=== PATIENT | female | born 1940 | race Caucasian/White ===

== ENCOUNTER 2019-10-08 07:08 | Outpatient (CLI) | payer MEDICARE, SELFPAY | END 2019-10-08 07:09 | disposition home or self-care (01) | LOC: CHSLAB 07:11 | PROVIDERS: PCP Internal Medicine Endocrinology, Diabetes & Metabolism; Visit Provider Internal Medicine Endocrinology, Diabetes & Metabolism | DX: E04.9 Nontoxic goiter, unspecified (principal); E03.9 Hypothyroidism, unspecified | CPT/HCPCS: 36415; 84439; 84443 ==

== ENCOUNTER 2019-11-12 07:27 | Outpatient (CLI) | payer MEDICARE, SELFPAY ==
[2019-11-12 08:47] LABS: Free T4 Free Thyroxine 1.09 ng/dL (0.76-1.46); Thyroid Stimulating Hormone 4.68 uIU/mL (0.36-3.74)
== END 2019-11-12 07:28 | disposition home or self-care (01) ==
LOC: CHSLAB 07:30
PROVIDERS: PCP Internal Medicine; Visit Provider Internal Medicine Endocrinology, Diabetes & Metabolism
DX: E04.9 Nontoxic goiter, unspecified (principal); E03.9 Hypothyroidism, unspecified
CPT/HCPCS: 36415; 84439; 84443

== ENCOUNTER 2019-12-24 07:06 | Outpatient (CLI) | payer MEDICARE, SELFPAY ==
[2019-12-24 08:41] LABS: Free T4 Free Thyroxine 1.42 ng/dL (0.76-1.46); Thyroid Stimulating Hormone 0.48 uIU/mL (0.36-3.74)
== END 2019-12-24 07:07 | disposition home or self-care (01) ==
PROVIDERS: PCP Internal Medicine; Visit Provider Internal Medicine Endocrinology, Diabetes & Metabolism
DX: E04.9 Nontoxic goiter, unspecified (principal); E03.9 Hypothyroidism, unspecified
CPT/HCPCS: 36415; 84439; 84443

== ENCOUNTER 2020-01-29 07:03 | Outpatient (CLI) | payer MEDICARE, SELFPAY ==
[2020-01-29 08:21] LABS: Free T3 1.92 pg/mL (2.18-3.98); Free T4 Free Thyroxine 1.27 ng/dL (0.76-1.46); Thyroid Stimulating Hormone 1.92 uIU/mL (0.36-3.74)
== END 2020-01-29 07:04 ==
PROVIDERS: PCP Internal Medicine Endocrinology, Diabetes & Metabolism; Visit Provider Internal Medicine Endocrinology, Diabetes & Metabolism
DX: E03.9 Hypothyroidism, unspecified (principal); E04.1 Nontoxic single thyroid nodule; E04.9 Nontoxic goiter, unspecified
CPT/HCPCS: 36415; 84439; 84443; 84481

== ENCOUNTER 2020-05-08 07:01 | Outpatient (CLI) | payer MEDICARE, SELFPAY ==
[2020-05-08 07:15] LABS: Add Urine Microscopic? YES; Appearance Urine Cloudy (Clear); Bilirubin Urine Negative (Negative); Blood Urine 1+ (Negative); Color Urine Yellow (Yellow); Glucose Urine UA Negative (Negative); Ketones Urine Negative (Negative); Leukocyte Esterase Ur 3+ LEU/UL (Negative); Nitrate Urine Positive (Negative); Protein Urine Negative (Negative); Specific Grav Ur 1.015 (1.010-1.020); Urobilinogen Urine 0.2 mg/dL (0.2-1.0); pH Urine 6.5 (5.0-8.0)
[2020-05-08 07:33] LABS: Bacteria Urine 4+ /hpf; RBC Urine 0-2 /hpf (0-2); Squamous Epithelial Cell Urine Rare /hpf (Few); WBC Urine >75 /hpf (0-3)
== END 2020-05-08 07:02 | disposition home or self-care (01) ==
LOC: CHSLAB 07:02
PROVIDERS: PCP Internal Medicine; Visit Provider Internal Medicine
DX: N39.0 Urinary tract infection, site not specified (principal)
CPT/HCPCS: 81001; 87077; 87086; 87088; 87186

== ENCOUNTER 2020-06-22 07:11 | Outpatient (CLI) | payer MEDICARE, SELFPAY ==
[2020-06-22 07:29] LABS: Basophils Absolute Auto 0.06 K/mm3 (0.00-0.10); Basophils Percent Auto 0.8 % (0.0-1.0); Eosinophils Absolute Auto 0.42 K/mm3 (0.02-0.50); Eosinophils Percent Auto 5.7 % (1.0-6.0); Hematocrit 46.7 % (35.0-42.0); Hemoglobin 14.8 g/dL (11.7-13.8); Immature Granulocyte Absolute 0.01 K/mm3 (0.00-0.00); Immature Granulocyte Percent A 0.1 % (0.0-0.0); Lymphocytes Absolute Auto 1.44 K/mm3 (1.10-4.50); Lymphocytes Percent Auto 19.6 % (18.0-42.0); Mean Corpuscular HGB Conc 31.7 g/dL (32.0-36.0); Mean Corpuscular Hemoglobin 28.9 pg (27.0-31.0); Mean Corpuscular Volume 91.2 fL (78.0-102.0); Mean Platelet Volume 9.5 fl (9.2-11.8); Monocytes Absolute Auto 0.58 K/mm3 (0.10-0.90); Monocytes Percent Auto 7.9 % (2.0-11.0); Neutrophils Absolute Auto 4.8 K/mm3 (1.7-7.2); Neutrophils Percent Auto 65.9 % (50.0-70.0); Platelet Count Result 344 K/mm3 (150-420); Red Blood Count 5.12 M/mm3 (4.20-5.40); Red Cell Distribution Width 13.6 % (11.6-14.4); White Blood Count 7.3 K/mm3 (4.8-10.8)
[2020-06-22 08:17] LABS: Alanine Aminotransferase 18 U/L (14-59); Albumin Level 1.8 g/dL (3.4-5.0); Alkaline Phosphatase 74 U/L (46-116); Anion Gap 7 mmol/L (8-16); Aspartate Amino Transferase 23 U/L (15-37); Bilirubin,Total 0.4 mg/dL (0.00-1.00); Blood Urea Nitrogen 13 mg/dL (7-18); Calcium 8.9 mg/dL (8.5-10.1); Carbon Dioxide 31 mmol/L (21-32); Chloride 108 mmol/L (98-108); Estimated Glomerular Filt Rate > 60; Glucose 106 mg/dL (70-99); Osmolality Calculated 302 mOsm/kg (285-295); Potassium 4.2 mmol/L (3.5-5.1); Sodium 146 mmol/L (136-145); Total Protein 5.9 g/dL (6.4-8.2)
== END 2020-06-22 07:12 | disposition home or self-care (01) ==
LOC: CHSLAB 07:14
PROVIDERS: PCP Internal Medicine; Visit Provider Internal Medicine
DX: E88.09 Other disorders of plasma-protein metabolism, not elsewhere classified (principal)
CPT/HCPCS: 36415; 80053; 85025

== ENCOUNTER 2020-08-03 07:04 | Outpatient (CLI) | payer MEDICARE, SELFPAY ==
[2020-08-03 08:04] LABS: Free T4 Free Thyroxine 1.12 ng/dL (0.76-1.46); Thyroid Stimulating Hormone 3.19 uIU/mL (0.36-3.74)
== END 2020-08-03 07:05 | disposition home or self-care (01) ==
LOC: CHSLAB 07:07
PROVIDERS: PCP Internal Medicine; Visit Provider Internal Medicine Endocrinology, Diabetes & Metabolism
DX: E03.9 Hypothyroidism, unspecified (principal)
CPT/HCPCS: 36415; 84439; 84443

== ENCOUNTER 2020-11-30 07:14 | Outpatient (CLI) | payer MEDICARE, SELFPAY ==
[2020-11-30 07:33] LABS: Appearance Urine Clear (Clear); Basophils Absolute Auto 0.06 K/mm3 (0.00-0.10); Basophils Percent Auto 0.9 % (0.0-1.0); Bilirubin Urine Negative (Negative); Color Urine Yellow (Yellow); Eosinophils Absolute Auto 0.17 K/mm3 (0.02-0.50); Eosinophils Percent Auto 2.5 % (1.0-6.0); Glucose Urine UA Negative (Negative); Hematocrit 42.5 % (35.0-42.0); Hemoglobin 13.5 g/dL (11.7-13.8); Immature Granulocyte Absolute 0.02 K/mm3 (0.00-0.00); Immature Granulocyte Percent A 0.3 % (0.0-0.0); Ketones Urine Negative (Negative); Leukocyte Esterase Ur Negative LEU/UL (Negative); Lymphocytes Absolute Auto 1.34 K/mm3 (1.10-4.50); Lymphocytes Percent Auto 19.9 % (18.0-42.0); Mean Corpuscular HGB Conc 31.8 g/dL (32.0-36.0); Mean Corpuscular Hemoglobin 28.1 pg (27.0-31.0); Mean Corpuscular Volume 88.4 fL (78.0-102.0); Mean Platelet Volume 9.3 fl (9.2-11.8); Monocytes Percent Auto 8.9 % (2.0-11.0); Neutrophils Absolute Auto 4.5 K/mm3 (1.7-7.2); Neutrophils Percent Auto 67.5 % (50.0-70.0); Nitrate Urine Negative (Negative); Platelet Count Result 361 K/mm3 (150-420); Protein Urine Negative (Negative); Red Blood Count 4.81 M/mm3 (4.20-5.40); Red Cell Distribution Width 14.4 % (11.6-14.4); Urobilinogen Urine 0.2 mg/dL (0.2-1.0); White Blood Count 6.7 K/mm3 (4.8-10.8)
[2020-11-30 07:38] LABS: Add Urine Microscopic? YES; Blood Urine Trace-lysed (Negative); WBC Urine 0-3 /hpf (0-3)
[2020-11-30 07:40] LABS: Bacteria Urine Trace /hpf; Squamous Epithelial Cell Urine Rare /hpf (Few)
[2020-11-30 08:43] LABS: Alanine Aminotransferase 21 U/L (14-59); Albumin Level 2.9 g/dL (3.4-5.0); Alkaline Phosphatase 74 U/L (46-116); Anion Gap 8 mmol/L (8-16); Aspartate Amino Transferase 21 U/L (15-37); Bilirubin,Total 0.5 mg/dL (0.00-1.00); Blood Urea Nitrogen 21 mg/dL (7-18); Calcium 8.7 mg/dL (8.5-10.1); Carbon Dioxide 29 mmol/L (21-32); Chloride 107 mmol/L (98-108); Cholesterol 167 mg/dL (0-200); Estimated Glomerular Filt Rate 53; Glucose 90 mg/dL (70-99); HDL Direct 57 mg/dL (40-60); LDL Cholesterol Calculated 94 mg/dL (<130); Osmolality Calculated 301 mOsm/kg (285-295); Potassium 4.1 mmol/L (3.5-5.1); Sodium 144 mmol/L (136-145); Total Protein 5.6 g/dL (6.4-8.2); Triglycerides 80 mg/dL (0-150)
== END 2020-11-30 07:15 | disposition home or self-care (01) ==
LOC: CHSLAB 07:17
PROVIDERS: PCP Internal Medicine; Visit Provider Internal Medicine
DX: E78.5 Hyperlipidemia, unspecified (principal); I10 Essential (primary) hypertension
CPT/HCPCS: 36415; 80053; 80061; 81001; 85025

== ENCOUNTER 2021-03-24 01:37 | Day surgery (SDC) | payer MEDICARE, SELFPAY ==
[2021-03-15 13:46] VITALS: BMI 16.9
[2021-03-24 06:39] VITALS: BP 121/60; PULSE 18; RESP 18; TEMP 36.7; O2SAT 95
[2021-03-24] MEDS: LACTATED RINGERS 1,000 ML 150 ML IV CONT (06:45)
--- NOTE | 2021-03-24 08:07 | WPDANESEPPF ---
Anes - Initial Pre Proc Eval Procedure: Operation Date: 03/24/21 08:00 Proposed Procedures p Colonoscopy - Mathew Jewell DO Date/Time: 03/24/21 08:07 Surgeon: Mathew Jewell DO Pre Op Diagnosis: extensive diverticulosis/anal rectal thickening Patient Data Age: 80 Gender: F Height: 1.65 m Weight: 50.5 kg Last Vital Signs Temp 98.1 F 03/24/21 06:39 Pulse 18 L 03/24/21 06:39 Resp 18 03/24/21 06:39 BP 121/60 03/24/21 06:39 Pulse Ox 95 03/24/21 06:39 Allergies Allergy/AdvReac Type Severity Reaction Status Date / Time blue dye Allergy Unknown Anaphylaxis Verified 03/24/21 06:37 red dye Allergy Unknown Unknown Verified 03/24/21 06:37 Sulfa (Sulfonamide Allergy Unknown Unknown Verified 03/24/21 06:37 Antibiotics) Home Medications Medication Instructions Recorded Confirmed Type alprazolam 0.5 mg tablet 0.5 mg PO DAILY 06/30/19 03/15/21 History aspirin 81 mg tablet,delayed 81 mg PO DAILY 06/30/19 03/15/21 History release atorvastatin 40 mg tablet 40 mg PO DAILY 06/30/19 03/15/21 History clopidogrel 75 mg tablet 75 mg PO DAILY 06/30/19 03/24/21 History docusate sodium 100 mg capsule 100 mg PO DAILY 06/30/19 03/15/21 History magnesium oxide 400 mg PO WEEKLY 06/30/19 03/15/21 History nitroglycerin 0.4 mg sublingual 0.4 mg SUBLINGUAL Q5M PRN 06/30/19 03/15/21 History tablet pantoprazole 40 mg tablet,delayed 40 mg PO QAM 06/30/19 03/15/21 History release pirbuterol 200 mcg/actuation 200 mcg INHALATION PRN PRN 06/30/19 03/15/21 History aerosol inhaler psyllium husk 0.52 gram capsule 0.52 gm PO DAILY 06/30/19 03/15/21 History sennosides 15 mg tablet 15 mg PO DAILY 06/30/19 03/15/21 History witch jun 50 % topical pads 1 pad TOPICAL BID 06/30/19 03/15/21 History metoprolol tartrate 25 mg tablet 25 mg PO BID 01/01/20 03/24/21 History levothyroxine 75 mcg tablet See Rx Instructions .ROUTE 01/04/21 03/15/21 Rx .COMPLEX #90 tablet oxybutynin chloride 10 mg 10 mg PO DAILY 01/04/21 03/15/21 History tablet,extended release 24 hr calcium polycarbophil [FiberCon] 625 mg PO DAILY 03/15/21 03/15/21 History nortriptyline 10 mg PO DAILY 03/15/21 03/15/21 History sertraline 50 mg PO DAILY 03/15/21 03/15/21 History Patient hx anesthesia problems: none Family hx anesthesia problems: none PMFSH Past Medical History Medical History Anxiety Arthritis Asthma Back pain BMI 20.0-20.9, adult Breast cancer CAD (coronary artery disease) Cataracts, bilateral Chest pain Depression Family history of stent Glaucoma Headache, migraine Heart disease Hyperlipidemia, unspecified Hypertension Hypothyroidism, unspecified Nontoxic multinodular goiter Osteoporosis Vision loss Surgical History Surgical History H/O: hysterectomy History of bladder suspension procedure History of cholecystectomy Family History Family History Mother Family history of obesity Family history of migraine headaches Family history of arthritis Family history of coronary artery disease Family history of congestive heart failure Family history of heart disease in male family member before age 55 Hypertension Acute myocardial infarction Father Family history of glaucoma Family history of cataracts Cerebrovascular accident Family history of arthritis Family history of diabetes mellitus in first degree relative Family history of coronary artery disease Family history of lung disease Family history of heart disease in male family member before age 55 Acute myocardial infarction Sibling Family history of cataracts Family history of elevated blood lipids Family history of liver disease Family history of coronary artery disease Family history of lung disease Family history of heart disease in male family member before age 55
--- NOTE | 2021-03-24 08:08 | PM.IMHP ---
H&P: HPI History of Present Illness Date/Time: 03/24/21 08:08 Chief Complaint: weight loss, abnormal CT Narrative: this is an 80-year-old woman who presented with recent weight loss and fatigue. She was seen by her oncologist and CT of her abdomen and pelvis was obtained. This showed evidence extensive diverticulosis and anal rectal thickening. She last had a colonoscopy about 5 years ago and she states this was normal. She denies any prior history of colon cancer. She does have a history of breast cancer and lymphoma. Review of Systems Review of Systems: All systems reviewed & are unremarkable except as noted in HPI and below Constitutional: Constitutional: Reports as per HPI, Denies chills, Denies fever(s), Denies headache(s) and Reports weight loss Eyes: Eyes: Denies change in vision ENT: Denies dizziness, Denies headache(s), Denies neck mass and Denies throat swelling Cardiovascular: Cardiovascular: Denies chest pain, Denies lightheadedness and Denies dyspnea Respiratory: Respiratory: Denies cough, Denies dyspnea and Denies wheezing Gastrointestinal: Gastrointestinal: Denies abdominal pain, Denies change in bowel habits, Denies nausea and Denies vomiting Genitourinary: Genitourinary: Denies hematuria and Denies dysuria Musculoskeletal: Musculoskeletal: Reports as per HPI Integumentary/Breasts: Skin/Breast: Reports as per HPI Neurologic: Denies dizziness and Denies headache(s) Allergic/Immunologic: Allergic/Immunologic: Denies throat swelling and Denies wheezing [facility] Past Medical History Medical History Anxiety Arthritis Asthma Back pain BMI 20.0-20.9, adult Breast cancer CAD (coronary artery disease) Cataracts, bilateral Chest pain Depression Family history of stent Glaucoma Headache, migraine Heart disease Hyperlipidemia, unspecified Hypertension Hypothyroidism, unspecified Nontoxic multinodular goiter Osteoporosis Vision loss Surgical History Surgical History H/O: hysterectomy History of bladder suspension procedure History of cholecystectomy Family History Family History Mother Family history of obesity Family history of migraine headaches Family history of arthritis Family history of coronary artery disease Family history of congestive heart failure Family history of heart disease in male family member before age 55 Hypertension Acute myocardial infarction Father Family history of glaucoma Family history of cataracts Cerebrovascular accident Family history of arthritis Family history of diabetes mellitus in first degree relative Family history of coronary artery disease Family history of lung disease Family history of heart disease in male family member before age 55 Acute myocardial infarction Sibling Family history of cataracts Family history of elevated blood lipids Family history of liver disease Family history of coronary artery disease Family history of lung disease Family history of heart disease in male family member before age 55 Family history of diabetes mellitus in first degree relative Family history of osteoarthritis Grandparent Family history of arthritis Family history of heart disease in male family member before age 55 Social History Social History Smoking status: Never smoker Second hand tobacco smoke exposure: No Alcohol intake: never Substance use: never Substance use type: does not use Living arrangements: with family Additional living arrangements comments: (jazzy) Spiritual care concerns: No Meds Home Medications and Allergies Home Medications Medication Instructions Recorded Confirmed Type alprazolam 0.5 mg tablet 0.5 mg PO DAILY 06/30/19 03/15/21 History aspirin 81
[2021-03-24 08:45] VITALS: BP 111/53; PULSE 83; RESP 27; O2SAT 96
[2021-03-24 08:55] VITALS: BP 108/58; PULSE 82; RESP 24; O2SAT 97
[2021-03-24 09:05] VITALS: BP 137/60; PULSE 88; RESP 20; O2SAT 97
== END 2021-03-24 09:24 | disposition home or self-care (01) ==
PROVIDERS: PCP Internal Medicine; Visit Provider Surgery
PROC: 0DJD8ZZ Inspection of Lower Intestinal Tract, Via Natural or Artificial Opening Endoscopic (ICD-10-PCS; CPT 45378; principal; 2021-03-24 08:00)
DX: R93.5 Abnormal findings on diagnostic imaging of other abdominal regions, including retroperitoneum (principal); R63.4 Abnormal weight loss; R53.83 Other fatigue; K57.30 Diverticulosis of large intestine without perforation or abscess without bleeding; I10 Essential (primary) hypertension; I25.10 Atherosclerotic heart disease of native coronary artery without angina pectoris; J45.909 Unspecified asthma, uncomplicated; E04.2 Nontoxic multinodular goiter; E78.5 Hyperlipidemia, unspecified; E03.9 Hypothyroidism, unspecified; H40.9 Unspecified glaucoma; M81.0 Age-related osteoporosis without current pathological fracture; M19.90 Unspecified osteoarthritis, unspecified site; F32.9 Major depressive disorder, single episode, unspecified; F41.9 Anxiety disorder, unspecified; Z90.49 Acquired absence of other specified parts of digestive tract; Z85.3 Personal history of malignant neoplasm of breast; Z90.710 Acquired absence of both cervix and uterus
CPT/HCPCS: 45378; J2704; J7120

== ENCOUNTER 2021-03-28 08:57 | Inpatient (IN) | payer MEDICARE, SELFPAY ==
[2021-03-28] VITALS (8 sets, daily range): BP systolic 116–128; BP diastolic 50–76; PULSE 74–98; RESP 16–38; TEMP 36.2–36.6; O2SAT 96–100; BMI 22.7
--- NOTE | ~2021-03-28 | XR_ITS ---
EXAMINATION: XR hip LT 2V w AP pelvis DATE: 03/28/2021 11:12 INDICATION: Left hip pain post fall TECHNIQUE: Anteroposterior view of the pelvis and anteroposterior and frog-leg lateral views of the l eft hip were obtained. COMPARISON: CT abdomen and pelvis dated 03/26/2015 FINDINGS: Alignment is normal. No fracture. Mild osteoarthritis of the bilateral hips, the right sacroiliac hakan nt and at the profiled facet joints of the lower lumbar spine. Bone island at the left femoral head. IMPRESSION: 1. No acute osseous abnormality. Reviewed, dictated and finalized at location A.
--- NOTE | ~2021-03-28 | CT_ITS ---
EXAMINATION: CT diagnostic chest w con DATE: 03/29/2021 07:09 INDICATION: Shortness of breath, history of right breast cancer TECHNIQUE: Transaxial computed tomographic images of the chest were obtained after the administration of 75 cc of Omnipaque 350 intravenous contrast. The dose-length product (DLP) was 132.86 mGy-cm. Ite rative reconstruction was used. COMPARISON: 04/24/2016 FINDINGS: There are moderate-sized pleural effusions with loculation. Patchy bilateral airspace opaci ties are present, including in the right lung apex. There is a 3.2 x 2.2 cm masslike opacity of the l eft lower lobe. No pneumothorax is identified. There are changes of right mastectomy. Calcified pulmo nary nodules are consistent with old granulomatous disease. Coronary artery stents are noted. There i s a 9 mm cyst of the liver. Punctate calcifications in an otherwise normal spleen likely represent he aled granulomatous disease. The gallbladder is surgically absent. IMPRESSION: 1. Moderate-sized loculated pleural effusions. 2. Patchy opacities of the lungs, including the right lung apex, likely pneumonia. 3. Masslike opacity of the left lower lobe which could also reflect pneumonia however underlying maribel gnancy is a consideration. Attention on follow-up examination is recommended. Reviewed, dictated and finalized at location A. IMPRESSION: 1. Moderate-sized loculated pleural effusions. 2. Patchy opacities of the lungs, including the right lung apex, likely pneumon ia. 3. Masslike opacity of the left lower lobe which could also reflect pneumonia h owever underlying malignancy is a consideration. Attention on follow-up examina tion is recommended.
--- NOTE | ~2021-03-28 | XR_ITS ---
MODIFIED ESOPHAGRAM HISTORY: Dysphagia. TECHNIQUE: Modified barium esophagram was performed by speech pathologist under radiologist fluorosco pic guidance. This was recorded on tape. The exam was reviewed on 03/30/2021 15:58 CDT. The DAP for this procedure was 1.6 Gycm2. Fluoroscopy time is 2.7 minutes. FINDINGS: Lateral projection of the cervical spine demonstrates normal alignment. There is poor lab ial seal, poor laryngeal elevation and movement. During pharyngeal stage there is reduced laryngeal e levation, abduction, tongue base retraction and pharyngeal squeeze. There is vallecular and piriform sinus residue with no laryngeal penetration. Patient is at risk for aspiration.. IMPRESSION: 1: Laryngeal penetration with risk for aspiration. 2: Please refer to speech pathologist report for additional detail. Reviewed, dictated and finalized at location A.
--- NOTE | ~2021-03-28 | XR_ITS ---
EXAMINATION: XR abdomen NG/feed tube insert DATE: 03/31/2021 09:58 INDICATION: Nasogastric tube placement TECHNIQUE: A supine view of the abdomen and mid to lower chest was obtained for evaluation of feedin g tube placement. COMPARISON: CT dated 03/26/2015 FINDINGS: Is a gastric tube tip in proximal side port in the body of the stomach. Cholecystectomy clips in the right upper quadrant. Gas is seen extending throughout the normal appearing transverse colon. No dila brian gas-filled loops of bowel in the visualized upper abdomen. The lower abdomen and pelvis are exclu ded from the [id number]. New small to moderate-sized lateral pleural effusions with associated opa cities in the mid and lower lung zones which could represent atelectasis and/or pneumonia. Heart size is normal. Calcified left hilar and mediastinal lymph nodes consistent with old granulomatous diseas e. IMPRESSION: 1. Nasogastric tube tip in the stomach. Reviewed, dictated and finalized at location A.
--- NOTE | ~2021-03-28 | CT_ITS ---
EXAMINATION: CT brain wo con DATE: 03/29/2021 14:57 INDICATION: Difficulty swallowing. Breast cancer. TECHNIQUE: Computed tomography (CT) of the head was performed without intravenous contrast. Sagittal and coronal reconstructions were performed. The mA was adjusted according to patient size. Iterative reconstruction technique was employed. The dose-length product was 529.67 mGy-cm. COMPARISON: None FINDINGS: No acute intracranial hemorrhage, acute infarction or abnormal extra axial fluid collection.. There i s mild scattered white matter hypoattenuation consistent with chronic small vessel ischemic disease. Symmetric prominence of the sulci consistent with mild age-appropriate diffuse cerebral volume loss. Prominent perivascular spaces at the inferior aspect of the bilateral basal ganglia. Ventricles are normal and symmetric. No mass/mass effect. Changes of bilateral intraocular lens replacement. The orb its, paranasal sinuses and mastoid air cells are normal. Intracranial calcified cerebral atherosclero sis is noted. IMPRESSION: 1. Age-related changes including mild diffuse volume loss and mild scattered white matter hypoattenua tion consistent with chronic small vessel ischemic disease. 2. No findings to suggest metastatic disease although sensitivity for small lesions on noncontrast CT is significantly lower than with either postcontrast CT or MRI. Reviewed, dictated and finalized at location A. IMPRESSION: 1. Age-related changes including mild diffuse volume loss and mild scattered wh ite matter hypoattenuation consistent with chronic small vessel ischemic diseas e. 2. No findings to suggest metastatic disease although sensitivity for small les ions on noncontrast CT is significantly lower than with either postcontrast CT or MRI.
--- NOTE | ~2021-03-28 | XR_ITS ---
EXAMINATION: [id number], XR thoracolumbar DATE: 03/28/2021 11:12 INDICATION: Frequent falls with left-sided chest pain and generalized weakness. Aspiration pneumonia. TECHNIQUE: 1. A frontal inspiratory view of the chest and 3 views of the left ribs were obtained. 2. AP and lateral views of the thoracolumbar spine were obtained. COMPARISON: Chest radiograph dated 08/21/[address] abdomen and pelvis dated FINDINGS: Chest and left ribs: There 13 paired rib-bearing thoracic segments. No rib fractures identified. Opacities in the bilatera l mid and lower lung zones consistent with small right and small to moderate left pleural effusions w ith associated atelectasis and/or pneumonia. Indeterminate nodular opacity right apex. Surgical clips at the left apex. Calcified nodules in the left midlung zone and calcified left hilar lymph nodes co nsistent with old granulomatous disease. Cardiomediastinal silhouette is normal. Coronary artery sten ting. Thoracolumbar spine: There are 5 nonrib-bearing lumbar segments. 60 degree thoracolumbar dextrocurvature. 2 mm chronic ret rolisthesis L2 on L3. Vertebral body heights are normal. Disc heights are relatively preserved. Moder ate lower lumbar facet osteoarthritis. Cholecystectomy clips in right upper quadrant. IMPRESSION: 1. Small right and small to moderate left pleural effusions with associated atelectasis and/or pneumo laura in the lower lung zones. 2. Indeterminate nodular opacity right apex which could represent pleural-parenchymal scarring althou gh differential includes malignancy. Recommend further evaluation with chest CT, preferably with intr avenous contrast. 3. Mild thoracolumbar dextrocurvature with mild lumbar spondylosis. Reviewed, dictated and finalized at location A. IMPRESSION: 1. Small right and small to moderate left pleural effusions with associated ate lectasis and/or pneumonia in the lower lung zones. 2. Indeterminate nodular opacity right apex which could represent pleural-paren chymal scarring although differential includes malignancy. Recommend further ev aluation with chest CT, preferably with intravenous contrast. 3. Mild thoracolumbar dextrocurvature with mild lumbar spondylosis.
[2021-03-28] MEDS: KETOROLAC 30 MG/ML VIAL (*BKC) IV PUSH (10:11)
[2021-03-28 10:12] LABS: Basophils Absolute Auto 0.03 K/mm3 (0.00-0.10); Basophils Percent Auto 0.2 % (0.0-1.0); Eosinophils Absolute Auto 0.05 K/mm3 (0.02-0.50); Eosinophils Percent Auto 0.3 % (1.0-6.0); Hematocrit 30.3 % (35.0-42.0); Hemoglobin 10.6 g/dL (11.7-13.8); Immature Granulocyte Absolute 0.23 K/mm3 (0.00-0.00); Immature Granulocyte Percent A 1.5 % (0.0-0.0); Lymphocytes Absolute Auto 0.27 K/mm3 (1.10-4.50); Lymphocytes Percent Auto 1.7 % (18.0-42.0); Mean Corpuscular Volume 82.8 fL (78.0-102.0); Mean Platelet Volume 8.8 fl (9.2-11.8); Monocytes Absolute Auto 0.71 K/mm3 (0.10-0.90); Monocytes Percent Auto 4.5 % (2.0-11.0); Neutrophils Absolute Auto 14.4 K/mm3 (1.7-7.2); Neutrophils Percent Auto 91.8 % (50.0-70.0); Platelet Count Result 395 K/mm3 (150-420); Red Blood Count 3.66 M/mm3 (4.20-5.40); Red Cell Distribution Width 16.1 % (11.6-14.4); White Blood Count 15.7 K/mm3 (4.8-10.8)
[2021-03-28 10:13] LABS: Add Urine Microscopic? YES; Appearance Urine Clear (Clear); Bilirubin Urine Negative (Negative); Blood Urine 1+ (Negative); Color Urine Light Yellow (Yellow); Glucose Urine UA Negative (Negative); Ketones Urine Negative (Negative); Leukocyte Esterase Ur Negative (Negative); Nitrate Urine Negative (Negative); Protein Urine Negative (Negative); Urobilinogen Urine 0.2 mg/dL (0.2-1.0)
[2021-03-28] MEDS: PANTOPRAZOLE SODIUM IV 40 MG VIAL IV PUSH (10:16)
[2021-03-28] MEDS: SODIUM CHLORIDE 0.9% IV 500 ML 999 ML IV CONT (10:17)
--- NOTE | 2021-03-28 10:20 | PC.NURSE ---
ORIGINAL IV WAS STARTED ON RIGHT UPPER EXTREMITY - BUT THEN DISCONTINUED D/T RIGHT MASTECTOMY - ERP AWARE AND STATES NO NEW ORDERS
[2021-03-28 10:23] LABS: Bacteria Urine None seen /hpf; RBC Urine 0-2 /hpf (0-2); Squamous Epithelial Cell Urine Rare /hpf (Few); WBC Urine None seen /hpf (0-3)
[2021-03-28 10:29] LABS: Alanine Aminotransferase 29 U/L (14-59); Albumin Level 0.9 g/dL (3.4-5.0); Alkaline Phosphatase 114 U/L (46-116); Anion Gap 11 mmol/L (8-16); Aspartate Amino Transferase 41 U/L (15-37); Bilirubin,Total 0.3 mg/dL (0.00-1.00); Blood Urea Nitrogen 12 mg/dL (7-18); Calcium 7.3 mg/dL (8.5-10.1); Carbon Dioxide 23 mmol/L (21-32); Chloride 96 mmol/L (98-108); Estimated Glomerular Filt Rate > 60; Glucose 100 mg/dL (70-99); Osmolality Calculated 269 mOsm/kg (285-295); Potassium 2.7 mmol/L (3.5-5.1); Sodium 130 mmol/L (136-145); Total Protein 4.5 g/dL (6.4-8.2)
[2021-03-28 10:34] LABS: Lactic Acid Reflex 0.9 mmol/L (0.4-2.0)
[2021-03-28 10:56] LABS: NT Pro B Type Natriuretic Pept 2932 pg/mL (0-450)
--- NOTE | 2021-03-28 11:44 | ED.WEAKNESS ---
HPI - Weakness General Chief complaint: Weakness Stated complaint: CANT EAT OR SWALLOW Source: patient and family History of Present Illness HPI Narrative: this is an 80-year-old female with a history of CHF, hypertension recently had a lower endoscopy which showed diverticulitis, has had some weakness and difficulty with swallowing solid food, have the patient currently is DNR, with some weakness decreased appetite, with some having sustained a fall having left rib pain and mid back pain with left hip and pelvis pain discomfort. There is no chest pain patient is not short of breath no nausea vomiting no abdominal pain no diarrhea constipation. According to patient and family she has been having difficulty with swallowing, hence a decreased appetite secondary to dysphagia has been able to drink water without choking. MD Complaint: generalized weakness Onset (ago): day(s) Duration: constant Location: generalized Migration: none Severity: severe Related Data Home Medications Medication Instructions Recorded Confirmed alprazolam 0.5 mg tablet 0.5 mg PO DAILY 06/30/19 03/15/21 aspirin 81 mg tablet,delayed 81 mg PO DAILY 06/30/19 03/15/21 release atorvastatin 40 mg tablet 40 mg PO DAILY 06/30/19 03/15/21 clopidogrel 75 mg tablet 75 mg PO DAILY 06/30/19 03/24/21 docusate sodium 100 mg capsule 100 mg PO DAILY 06/30/19 03/15/21 magnesium oxide 400 mg PO WEEKLY 06/30/19 03/15/21 nitroglycerin 0.4 mg sublingual 0.4 mg SUBLINGUAL Q5M PRN 06/30/19 03/15/21 tablet pantoprazole 40 mg tablet,delayed 40 mg PO QAM 06/30/19 03/15/21 release pirbuterol 200 mcg/actuation 200 mcg INHALATION PRN PRN 06/30/19 03/15/21 aerosol inhaler psyllium husk 0.52 gram capsule 0.52 gm PO DAILY 06/30/19 03/15/21 sennosides 15 mg tablet 15 mg PO DAILY 06/30/19 03/15/21 witch jun 50 % topical pads 1 pad TOPICAL BID 06/30/19 03/15/21 metoprolol tartrate 25 mg tablet 25 mg PO BID 01/01/20 03/24/21 oxybutynin chloride 10 mg 10 mg PO DAILY 01/04/21 03/15/21 tablet,extended release 24 hr calcium polycarbophil [FiberCon] 625 mg PO DAILY 03/15/21 03/15/21 nortriptyline 10 mg PO DAILY 03/15/21 03/15/21 sertraline 50 mg PO DAILY 03/15/21 03/15/21 Allergies Allergy/AdvReac Type Severity Reaction Status Date / Time blue dye Allergy Unknown Anaphylaxis Verified 03/24/21 06:37 red dye Allergy Unknown Unknown Verified 03/24/21 06:37 Sulfa (Sulfonamide Allergy Unknown Unknown Verified 03/24/21 06:37 Antibiotics) Review of Systems Review of Systems: All systems reviewed & are unremarkable except as noted in HPI and below PMFSH Past Medical History Medical History Anxiety Arthritis Asthma Back pain BMI 20.0-20.9, adult Breast cancer CAD (coronary artery disease) Cataracts, bilateral Chest pain Depression Family history of stent Glaucoma Headache, migraine Heart disease Hyperlipidemia, unspecified Hypertension Hypothyroidism, unspecified Nontoxic multinodular goiter Osteoporosis Vision loss Surgical History Surgical History H/O: hysterectomy History of bladder suspension procedure History of cholecystectomy Family History Family History Mother Family history of obesity Family history of migraine headaches Family history of arthritis Family history of coronary artery disease Family history of congestive heart failure Family history of heart disease in male family member before age 55 Hypertension Acute myocardial infarction Father Family history of glaucoma Family history of cataracts Cerebrovascular accident Family history of arthritis Family history of diabetes mellitus in first degree relative Family history of coronary artery disease Family history of lung disease Family history of heart disease in male family member before age 55 Acute myocardial in
--- NOTE | 2021-03-28 12:27 | PM.IMHP ---
H&P: HPI History of Present Illness Date/Time: 03/28/21 12:27 this is a 80-year-old female who presented to our emergency department with status post fall due to weakness. Patient has a past medical history anxiety, arthritis,chf, back pain, breast cancer, CAD, cataracts, chest pain, depression, glaucoma, headache migraine, heart disease, hyperlipidemia, hypertension, hypothyroidism, osteoporosis and visual loss. According to patient states she had a colonoscopy on 03/24/2020 when she has experienced weakness. Patient also admits to falling several times. Patient notes that the most pain she is in her tailbone area she does have multiple bruising to the left side of her body vital signs 128/70 ,99% on room air , respiratory rate of 38, temperature 97.2 WBCs 15.7, hemoglobin 10.6, hematocrit 30.3, platelets 395, sodium 130, potassium 2.7, BUN 12, creatinine 0.89, glucose 100, lactic acid 0.9, AST 41, ALT 29, BNP 2932, AST 41, ALT 29, upper chest x-ray indicates pneumonia rib and hip x-ray does not indicate fracture or dislocation. Patient being admitted for pneumonia and weakness along with electrolyte imbalance. Chief Complaint: Weakness status post fall Review of Systems Review of Systems: A 14 organ system Review of Systems was performed and pertinent positives included in the HPI, otherwise remaining ROS is negative. [facility] Past Medical History Medical History (Updated 03/28/21 @ 12:50 by EVERTON Serrano-C) Anxiety Arthritis Asthma Back pain BMI 20.0-20.9, adult Breast cancer CAD (coronary artery disease) Cataracts, bilateral Chest pain Depression Family history of stent Glaucoma Headache, migraine Heart disease Hyperlipidemia, unspecified Hypertension Hypothyroidism, unspecified Nontoxic multinodular goiter Osteoporosis Vision loss Surgical History Surgical History H/O: hysterectomy History of bladder suspension procedure History of cholecystectomy Family History Family History Mother Family history of obesity Family history of migraine headaches Family history of arthritis Family history of coronary artery disease Family history of congestive heart failure Family history of heart disease in male family member before age 55 Hypertension Acute myocardial infarction Father Family history of glaucoma Family history of cataracts Cerebrovascular accident Family history of arthritis Family history of diabetes mellitus in first degree relative Family history of coronary artery disease Family history of lung disease Family history of heart disease in male family member before age 55 Acute myocardial infarction Sibling Family history of cataracts Family history of elevated blood lipids Family history of liver disease Family history of coronary artery disease Family history of lung disease Family history of heart disease in male family member before age 55 Family history of diabetes mellitus in first degree relative Family history of osteoarthritis Grandparent Family history of arthritis Family history of heart disease in male family member before age 55 Social History Social History Smoking status: Never smoker Second hand tobacco smoke exposure: No Alcohol intake: never Substance use: never Substance use type: does not use Additional living arrangements comments: (jazzy) Spiritual care concerns: No Meds Home Medications and Allergies Home Medications Medication Instructions Recorded Confirmed Type alprazolam 0.5 mg tablet 0.5 mg PO DAILY 06/30/19 03/15/21 History aspirin 81 mg tablet,delayed 81 mg PO DAILY 06/30/19 03/15/21 History release atorvastatin 40 mg tablet 40 mg PO DAILY 06/30/19 03/15/21 History clopidogrel 75 mg tablet 75 mg PO DAILY 06/30/19 03/24/21 History docusate
--- NOTE | 2021-03-28 13:59 | PC.NURSE ---
Pt admitted from ER for difficulty swallowing, fall at home and weakness. Pt is A/O x2, lying in bed. Speech is garbled. Personal possesions are in a plastic bag in her room. Call marshall and phone in reach.
[2021-03-28] MEDS: SODIUM CHLORIDE 0.9% IV 1,000 ML 50 ML IV CONT (14:33)
[2021-03-28] MEDS: KCL 20 MEQ/SW 100 ML 100 ML 50 MEQ IVPB (14:35)
[2021-03-28] MEDS: FUROSEMIDE INJ 40 MG/4 ML VIAL IV PUSH (14:35)
--- NOTE | 2021-03-28 18:46 | PC.NURSE ---
notified that patient request use of her Biotene Mouth spray prn and GenTeal eye ointment @ . stated patient can use her home medications and may keep at bedside.
[2021-03-28 19:31] LABS: Anion Gap 10 mmol/L (8-16); Blood Urea Nitrogen 13 mg/dL (7-18); Calcium 7.3 mg/dL (8.5-10.1); Carbon Dioxide 23 mmol/L (21-32); Chloride 98 mmol/L (98-108); Estimated CRCL calculation 32 ml/min; Estimated Glomerular Filt Rate > 60; Glucose 90 mg/dL (70-99); Osmolality Calculated 272 mOsm/kg (285-295); Potassium 2.9 mmol/L (3.5-5.1); Sodium 131 mmol/L (136-145)
[2021-03-28] MEDS: MINERAL OIL/PETROLATUM OPHTH OINT 3.5 GM (EYE LUBRICANT) 1 APPLIC EACH EYE (23:42)
[2021-03-29] VITALS: BP 123/59; PULSE 100; RESP 20; TEMP 36.7; O2SAT 100
--- NOTE | 2021-03-29 03:25 | PC.NURSE ---
Dr Stanton notified of patient's complaints of chest and back pain rated @ 4 and ordered Tylenol. Patient noted to already have Tylenol suppository ordered. Patient sleeping when nurse checked on her next.
--- NOTE | 2021-03-29 03:33 | PC.NURSE ---
Patient c/o chest pain and lower back pain rated at a 4, bp 127/64, p-109 r- 20 t- 98.5 spo2 92, charge nurse spoke with MD who ordered tylenol, when I went back to the patient room she was sleeping.
[2021-03-29] MEDS: ACETAMINOPHEN 325 MG SUPPOSITORY RECTAL (05:05)
[2021-03-29 05:14] LABS: Basophils Absolute Auto 0.02 K/mm3 (0.00-0.10); Basophils Percent Auto 0.1 % (0.0-1.0); Eosinophils Absolute Auto 0.12 K/mm3 (0.02-0.50); Eosinophils Percent Auto 0.8 % (1.0-6.0); Hematocrit 29.4 % (35.0-42.0); Hemoglobin 9.9 g/dL (11.7-13.8); Immature Granulocyte Absolute 0.13 K/mm3 (0.00-0.00); Immature Granulocyte Percent A 0.9 % (0.0-0.0); Lymphocytes Absolute Auto 0.33 K/mm3 (1.10-4.50); Lymphocytes Percent Auto 2.3 % (18.0-42.0); Mean Corpuscular HGB Conc 33.7 g/dL (32.0-36.0); Mean Corpuscular Hemoglobin 28.3 pg (27.0-31.0); Monocytes Absolute Auto 0.52 K/mm3 (0.10-0.90); Monocytes Percent Auto 3.6 % (2.0-11.0); Neutrophils Absolute Auto 13.3 K/mm3 (1.7-7.2); Neutrophils Percent Auto 92.3 % (50.0-70.0); Platelet Count Result 443 K/mm3 (150-420); Red Cell Distribution Width 16.5 % (11.6-14.4); White Blood Count 14.4 K/mm3 (4.8-10.8)
[2021-03-29 05:26] VITALS: O2SAT 97
[2021-03-29 05:44] LABS: Alanine Aminotransferase 28 U/L (14-59); Albumin Level 0.9 g/dL (3.4-5.0); Alkaline Phosphatase 112 U/L (46-116); Anion Gap 11 mmol/L (8-16); Aspartate Amino Transferase 43 U/L (15-37); Bilirubin,Total 0.2 mg/dL (0.00-1.00); Blood Urea Nitrogen 12 mg/dL (7-18); Calcium 7.5 mg/dL (8.5-10.1); Carbon Dioxide 23 mmol/L (21-32); Chloride 100 mmol/L (98-108); Estimated CRCL calculation 36 ml/min; Estimated Glomerular Filt Rate > 60; Glucose 63 mg/dL (70-99); NT Pro B Type Natriuretic Pept 2098 pg/mL (0-450); Osmolality Calculated 275 mOsm/kg (285-295); Potassium 2.9 mmol/L (3.5-5.1); Sodium 134 mmol/L (136-145); Total Protein 4.5 g/dL (6.4-8.2)
[2021-03-29] MEDS: LEVOTHYROXINE SODIUM INJ 100 MCG/5 ML VIAL 37 MCG IV PUSH (05:57)
[2021-03-29 07:40] VITALS: BP 131/58; PULSE 108; RESP 30; TEMP 37.3; O2SAT 95
--- NOTE | 2021-03-29 08:03 | P.PNIM_ITS ---
Progress Note: A&P Assessment and Plan (1) Pneumonia: Qualifiers: Laterality: unspecified laterality Lung location: unspecified part of lung Pneumonia type: due to unspecified organism Qualified Code(s): J18.9 - Pneumonia, unspecified organism <Mathew AcostaTEZ-C - Last Filed: 03/29/21 13:13> Code(s): J18.9 - Pneumonia, unspecified organism <Mathew AcostaTEZ-C - Last Filed: 03/29/21 13:13> Status: Acute <Mathew AcostaDANON-C - Last Filed: 03/29/21 13:13> Assessment and Plan: * Chest x-ray indicate pneumonia * Continue Rocephin and azithromycin day 1 * Continue oxygen supplement if needed * Blood culture pending * WBCs 15.7 03/29/2021 WBC 14.4, continue with Rocephin and Azithromycin, Blood Cx pending <Mathew AcostaTEZ-C - Last Filed: 03/29/21 13:13> (2) Dysphagia: Qualifiers: Dysphagia type: unspecified Qualified Code(s): R13.10 - Dysphagia, unspecified <Mathew AcostaTEZ-C - Last Filed: 03/29/21 13:13> Code(s): R13.10 - Dysphagia, unspecified <Mathew AcostaTEZ-C - Last Filed: 03/29/21 13:13> Status: Acute <Mathew AcostaTEZ-C - Last Filed: 03/29/21 13:13> Assessment and Plan: * Consult to speech therapy * Patient n.p.o. 03/29/2021 Started Oral Care Q4H to moisten oral cavity, swallow evaluation tomorrow, continue NPO status, Obtaining CT Brain r/o mets as a couse for her dysphagia. <Mathew GoldsteinShannon KareemTEZ philippe-C - Last Filed: 03/29/21 13:13> (3) Weakness: Code(s): R53.1 - Weakness <Mathew SernaTEZ philippe-C - Last Filed: 03/29/21 13:13> Status: Acute <Mathew GoldsteinShannon Acosta APN-C - Last Filed: 03/29/21 13:13> Assessment and Plan: * Consulted PT OT 03/29/2021 Pt will work with PT/OT for the following: Relieve pain, Improve movement or ability, Prevent disability or surgery, Rehab after an accident, injury, or surgery, Work on balance to prevent a slip or fall, Learn to use assistive devices like a walker or cane as needed <Mathew GoldsteinJAMAR Uriostegui - Last Filed: 03/29/21 13:13> (4) Cancer: Code(s): C80.1 - Malignant (primary) neoplasm, unspecified <Mathew GoldsteinJAMAR Uriostegui - Last Filed: 03/29/21 13:13> Status: Acute <Mathew GoldsteinJAMAR Uriostegui - Last Filed: 03/29/21 13:13> Assessment and Plan: * Follow-up with oncologist 03/29/2021 f/u with oncologist for nodule in LLL, obtaining CT brain to r/o mets <Mathew TristonJAMAR Uriostegui - Last Filed: 03/29/21 13:13> (5) Dehydration: Code(s): E86.0 - Dehydration <Mathew GoldsteinYOANDY UriosteguiC - Last Filed: 03/29/21 13:13> Status: Acute <Mathew GoldsteinJAMAR Uriostegui - Last Filed: 03/29/21 13:13> Assessment and Plan: * Lightly hydrate due to patient's history of congestive heart failure * We will closely monitor 03/29/2021 Light hydration, NPO at this time d/t difficulty swallowing <Mathew GoldsteinJAMAR Uriostegui - Last Filed: 03/29/21 13:13> (6) Fall: Code(s): W19.XXXA - Unspecified fall, initial encounter <Mathew GoldsteinJAMAR Uriostegui - Last Filed: 03/29/21 13:13> Status: Acute <Mathew GoldsteinJAMAR Uriostegui - Last Filed: 03/29/21 13:13> Assessment and Plan: * Injury to ribs and hip * No fracture or dislocation noted * Continue pain medication * Consult to PT OT 03/29/2021 Pt working with PT/OT <Mathew GoldsteinJAMAR Uriostegui - Last Filed: 03/29/21 13:13> (7) Asthma: Code(s): J45.909 - Unspecified asthma, uncomplicated <JAMAR Guy - Last Filed: 03/29/21 13:13> Status: Acute <Mathew Acosta,
--- NOTE | 2021-03-29 08:03 | PM.IMPN ---
Progress Note: A&P Assessment and Plan (1) Pneumonia: Qualifiers: Laterality: unspecified laterality Lung location: unspecified part of lung Pneumonia type: due to unspecified organism Qualified Code(s): J18.9 - Pneumonia, unspecified organism <Mathew AcostaTEZ-C - Last Filed: 03/29/21 13:13> Code(s): J18.9 - Pneumonia, unspecified organism <Mathew AcostaDANON-C - Last Filed: 03/29/21 13:13> Status: Acute <Mathew Acosta DRILLING ENGINEERING MANAGER-C - Last Filed: 03/29/21 13:13> Assessment and Plan: Chest x-ray indicate pneumonia Continue Rocephin and azithromycin day 1 Continue oxygen supplement if needed Blood culture pending WBCs 15.7 03/29/2021 WBC 14.4, continue with Rocephin and Azithromycin, Blood Cx pending <Mathew AcostaTEZ-C - Last Filed: 03/29/21 13:13> (2) Dysphagia: Qualifiers: Dysphagia type: unspecified Qualified Code(s): R13.10 - Dysphagia, unspecified <Mathew AcostaDANON-C - Last Filed: 03/29/21 13:13> Code(s): R13.10 - Dysphagia, unspecified <Mathew AcostaDANON-C - Last Filed: 03/29/21 13:13> Status: Acute <Mathew AcostaDANON-C - Last Filed: 03/29/21 13:13> Assessment and Plan: Consult to speech therapy Patient n.p.o. 03/29/2021 Started Oral Care Q4H to moisten oral cavity, swallow evaluation tomorrow, continue NPO status, Obtaining CT Brain r/o mets as a couse for her dysphagia. <Mathew GoldsteinShannon Acosta APN-C - Last Filed: 03/29/21 13:13> (3) Weakness: Code(s): R53.1 - Weakness <Mathew SernaDANO philippeN-C - Last Filed: 03/29/21 13:13> Status: Acute <Mathew GoldsteinDANO UriosteguiN-C - Last Filed: 03/29/21 13:13> Assessment and Plan: Consulted PT OT 03/29/2021 Pt will work with PT/OT for the following: Relieve pain, Improve movement or ability, Prevent disability or surgery, Rehab after an accident, injury, or surgery, Work on balance to prevent a slip or fall, Learn to use assistive devices like a walker or cane as needed <Mathew SernaJAMAR philippe - Last Filed: 03/29/21 13:13> (4) Cancer: Code(s): C80.1 - Malignant (primary) neoplasm, unspecified <Mathew SernaYOANDY philippeC - Last Filed: 03/29/21 13:13> Status: Acute <Mathew AcostaJAMAR - Last Filed: 03/29/21 13:13> Assessment and Plan: Follow-up with oncologist 03/29/2021 f/u with oncologist for nodule in LLL, obtaining CT brain to r/o mets <Mathew GoldsteinJAMAR Uriostegui - Last Filed: 03/29/21 13:13> (5) Dehydration: Code(s): E86.0 - Dehydration <Mathew AcostaYOANDYC - Last Filed: 03/29/21 13:13> Status: Acute <Mathew AcostaJAMAR - Last Filed: 03/29/21 13:13> Assessment and Plan: Lightly hydrate due to patient's history of congestive heart failure We will closely monitor 03/29/2021 Light hydration, NPO at this time d/t difficulty swallowing <Mathew SernaJAMAR philippe - Last Filed: 03/29/21 13:13> (6) Fall: Code(s): W19.XXXA - Unspecified fall, initial encounter <Mathew SernaYOANDY philippeC - Last Filed: 03/29/21 13:13> Status: Acute <Mathew SernaJAMAR philippe - Last Filed: 03/29/21 13:13> Assessment and Plan: Injury to ribs and hip No fracture or dislocation noted Continue pain medication Consult to PT OT 03/29/2021 Pt working with PT/OT <Mathew GoldsteinJAMAR Uriostegui - Last Filed: 03/29/21 13:13> (7) Asthma: Code(s): J45.909 - Unspecified asthma, uncomplicated <JAMAR Guy - Last Filed: 03/29/21 13:13> Status: Acute <Mathew Acosta APN-James - Last Filed: 03/29/21 13:13> Assessment and Plan: Continue albuterol <JAMAR Guy - Last Filed: 03/29/21 13:13> (8) Hyperlipidemia: Code(s): E78.5 - Hyperlipidemia, unspecified <Mathew Acosta APN-C - Last Filed: 03/29/21 13:13> Status: Acute <JAMAR Guy - Last Filed: 03/29/21 13:13
[2021-03-29] MEDS: KCL 20 MEQ/SW 100 ML 100 ML 50 MEQ IVPB (09:08)
[2021-03-29] MEDS: ENOXAPARIN 40 MG/0.4 ML SYRINGE SUB-Q (09:09)
[2021-03-29] MEDS: SODIUM CHLORIDE 0.9% IV 1,000 ML 50 ML IV CONT (11:02)
[2021-03-29 12:15] LABS: Thyroid Stimulating Hormone 3.75 uIU/mL (0.36-3.74)
[2021-03-29 15:58] VITALS: BP 147/66; PULSE 98; RESP 22; TEMP 36.4; O2SAT 94
--- NOTE | 2021-03-29 16:26 | PCOTNOTE ---
On 03/29/21, the student, [Melvi Alonso ], provided care and completed [employer] documentation on this patient. I have reviewed the student's documentation and agree with the findings.MS
[2021-03-29] MEDS: MORPHINE SULFATE (*CRX) 2 MG/ML INJ 1 MG IV PUSH (21:40)
[2021-03-29] MEDS: MINERAL OIL/PETROLATUM OPHTH OINT 3.5 GM (EYE LUBRICANT) 1 APPLIC EACH EYE (21:44)
[2021-03-30] VITALS: BP 138/63; PULSE 105; RESP 20; TEMP 36.9; O2SAT 97
[2021-03-30 05:21] LABS: Hematocrit 30.4 % (35.0-42.0); Mean Corpuscular HGB Conc 32.9 g/dL (32.0-36.0); Mean Corpuscular Hemoglobin 28.1 pg (27.0-31.0); Mean Corpuscular Volume 85.4 fL (78.0-102.0); Mean Platelet Volume 8.5 fl (9.2-11.8); Platelet Count Result 454 K/mm3 (150-420); Red Blood Count 3.56 M/mm3 (4.20-5.40); Red Cell Distribution Width 16.7 % (11.6-14.4); White Blood Count 13.8 K/mm3 (4.8-10.8)
[2021-03-30 05:23] VITALS: O2SAT 96
[2021-03-30 05:28] LABS: Anion Gap 10 mmol/L (8-16); Blood Urea Nitrogen 8 mg/dL (7-18); Calcium 7.9 mg/dL (8.5-10.1); Carbon Dioxide 24 mmol/L (21-32); Chloride 104 mmol/L (98-108); Estimated CRCL calculation 42 ml/min; Estimated Glomerular Filt Rate > 60; Glucose 69 mg/dL (70-99); Magnesium 1.8 mg/dL (1.8-2.4); Osmolality Calculated 282 mOsm/kg (285-295); Potassium 2.9 mmol/L (3.5-5.1); Sodium 138 mmol/L (136-145)
[2021-03-30] MEDS: LEVOTHYROXINE SODIUM INJ 100 MCG/5 ML VIAL 37 MCG IV PUSH (05:57)
--- NOTE | 2021-03-30 06:21 | PC.NURSE ---
Patient glucose at 69. doctor notified. Order received for D5/1/2 half normal saline 250 bolus followed by D5 1/2 half normal saline at 50 an hour
[2021-03-30] MEDS: DEXTROSE 5%/0.45% SOD CHL 1,000 ML 50 ML IV CONT (07:48)
[2021-03-30 08:00] VITALS: BP 143/71; PULSE 98; RESP 26; TEMP 36.6; O2SAT 96
[2021-03-30] MEDS: KCL 20 MEQ/SW 100 ML 100 ML 50 MEQ IVPB ×3 (08:12→15:44)
[2021-03-30] MEDS: ENOXAPARIN 40 MG/0.4 ML SYRINGE SUB-Q (08:12)
--- NOTE | 2021-03-30 09:07 | PM.IMPN ---
Progress Note: A&P Assessment and Plan (1) Pneumonia: Qualifiers: Laterality: unspecified laterality Lung location: unspecified part of lung Pneumonia type: due to unspecified organism Qualified Code(s): J18.9 - Pneumonia, unspecified organism Code(s): J18.9 - Pneumonia, unspecified organism Status: Acute Assessment and Plan: Chest x-ray indicate pneumonia Continue Rocephin and azithromycin day 1 Continue oxygen supplement if needed Blood culture pending WBCs 15.7 03/29/2021 WBC 14.4, continue with Rocephin and Azithromycin, Blood Cx pending 03/30/2021 WBC 13.8, continue with Ab, Blood Cx NGTD, lungs clear, has some post nasal drainage (2) Dysphagia: Qualifiers: Dysphagia type: unspecified Qualified Code(s): R13.10 - Dysphagia, unspecified Code(s): R13.10 - Dysphagia, unspecified Status: Acute Assessment and Plan: Consult to speech therapy Patient n.p.o. 03/29/2021 Started Oral Care Q4H to moisten oral cavity, swallow evaluation tomorrow, continue NPO status, Obtaining CT Brain r/o mets as a couse for her dysphagia. 03/30/2021 With frequent oral care Pt is able to talk more clearly and is able to swallow small amounts, Pt stated she was able to swallow some phlegm, Pt to have Modified Barrium Swallow today around 1330 hours. (3) Weakness: Code(s): R53.1 - Weakness Status: Acute Assessment and Plan: Consulted PT OT 03/29/2021 Pt will work with PT/OT for the following: Relieve pain, Improve movement or ability, Prevent disability or surgery, Rehab after an accident, injury, or surgery, Work on balance to prevent a slip or fall, Learn to use assistive devices like a walker or cane as needed 03/30/2021 Continue working with PT/OT, Pt states working with PT is too much (4) Cancer: Code(s): C80.1 - Malignant (primary) neoplasm, unspecified Status: Acute Assessment and Plan: Follow-up with oncologist 03/29/2021 f/u with oncologist for nodule in LLL, obtaining CT brain to r/o mets (5) Dehydration: Code(s): E86.0 - Dehydration Status: Acute Assessment and Plan: Lightly hydrate due to patient's history of congestive heart failure We will closely monitor 03/29/2021 Light hydration, NPO at this time d/t difficulty swallowing 03/30/2021 Encourage Pt to moisten oral cavity, continue IVF, Swallow study today (6) Fall: Code(s): W19.XXXA - Unspecified fall, initial encounter Status: Acute Assessment and Plan: Injury to ribs and hip No fracture or dislocation noted Continue pain medication Consult to PT OT 03/29/2021 Pt working with PT/OT 03/30/2021 No reports of falling, RN reports Pt is weaker today compared to yesterday, Pt required only a 1 person assist. (7) Asthma: Code(s): J45.909 - Unspecified asthma, uncomplicated Status: Acute Assessment and Plan: Continue albuterol (8) Hyperlipidemia: Code(s): E78.5 - Hyperlipidemia, unspecified Status: Acute Assessment and Plan: Will resume atorvastatin 40 mg daily once patient is off n.p.o. status (9) Hypothyroidism, unspecified: Code(s): E03.9 - Hypothyroidism, unspecified Status: Acute Assessment and Plan: Continue Synthroid 37 mg daily Will resume home doses once patient is off n.p.o. status 03/29/2021 Slightly enlarged goiter, no tenderness, Pt states in the past when her goiter enlarged she had difficulty swallowing, TSH is 3.75 today 03/30/2021 Continue with Synthroid, Pt will need to follow up with PCP at [place] (10) CAD (coronary artery disease): Code(s): I25.10 - Atherosclerotic heart disease of [place] coronary artery without angina pectoris Status: Acute Assessment and Plan: Will resume Plavix with aspirin and atorvastatin once patient is off n.p.o. status (11) Hypertension: Code(s): I10 - Essential (primary) hypertension Status: Acute Assessment
--- NOTE | 2021-03-30 14:17 | PM.TDS ---
Transfer Discharge Sum: Prov Provider Date of admission: 03/28/21 11:50 <YOANDY GuyC - Last Filed: 03/31/21 12:37> Primary care physician: Naveen Reyes MD <YOANDY GuyC - Last Filed: 03/31/21 12:37> Admitting clinician: Venu Stanton MD <JAMAR Guy - Last Filed: 03/31/21 12:37> DS: Admitting Diagnosis Admitting Diagnosis Pneumonia <YOANDY GuyC - Last Filed: 03/31/21 12:37> DS: Discharge Diagnosis Discharge Diagnosis (1) Pneumonia: Qualifiers: Laterality: unspecified laterality Lung location: unspecified part of lung Pneumonia type: due to unspecified organism Qualified Code(s): J18.9 - Pneumonia, unspecified organism <JAMAR Guy - Last Filed: 03/31/21 12:37> Code(s): J18.9 - Pneumonia, unspecified organism <YOANDY GuyC - Last Filed: 03/31/21 12:37> Status: Acute <Mathew Acosta APN-C - Last Filed: 03/31/21 12:37> Assessment and Plan: Chest x-ray indicate pneumonia Continue Rocephin and azithromycin day 1 Continue oxygen supplement if needed Blood culture pending WBCs 15.7 03/29/2021 WBC 14.4, continue with Rocephin and Azithromycin, Blood Cx pending 03/30/2021 WBC 13.8, continue with Ab, Blood Cx NGTD, lungs Diminished > on left posterior, has some post nasal drainage <Mathew Acosta APN-C - Last Filed: 03/31/21 12:37> (2) Dysphagia: Qualifiers: Dysphagia type: unspecified Qualified Code(s): R13.10 - Dysphagia, unspecified <YOANDY GuyC - Last Filed: 03/31/21 12:37> Code(s): R13.10 - Dysphagia, unspecified <Mathew Acosta APN-C - Last Filed: 03/31/21 12:37> Status: Acute <JAMAR Guy - Last Filed: 03/31/21 12:37> Assessment and Plan: Consult to speech therapy Patient n.p.o. 03/29/2021 Started Oral Care Q4H to moisten oral cavity, swallow evaluation tomorrow, continue NPO status, Obtaining CT Brain r/o mets as a couse for her dysphagia. 03/30/2021 With frequent oral care Pt is able to talk more clearly and is able to swallow small amounts, Pt stated she was able to swallow some phlegm, Pt to have Modified Barrium Swallow today around 1330 hours. <JAMAR Guy - Last Filed: 03/31/21 12:37> (3) Weakness: Code(s): R53.1 - Weakness <JAMAR Guy - Last Filed: 03/31/21 12:37> Status: Acute <JAMAR Guy - Last Filed: 03/31/21 12:37> Assessment and Plan: Consulted PT OT 03/29/2021 Pt will work with PT/OT for the following: Relieve pain, Improve movement or ability, Prevent disability or surgery, Rehab after an accident, injury, or surgery, Work on balance to prevent a slip or fall, Learn to use assistive devices like a walker or cane as needed 03/30/2021 Continue working with PT/OT, Pt states working with PT is too much <JAMAR Guy - Last Filed: 03/31/21 12:37> (4) Cancer: Code(s): C80.1 - Malignant (primary) neoplasm, unspecified <JAMAR Guy - Last Filed: 03/31/21 12:37> Status: Acute <JAMAR Guy - Last Filed: 03/31/21 12:37> Assessment and Plan: Follow-up with oncologist 03/29/2021 f/u with oncologist for nodule in LLL, obtaining CT brain to r/o mets <JAMAR Guy - Last Filed: 03/31/21 12:37> (5) Dehydration: Code(s): E86.0 - Dehydration <JAMAR Guy - Last Filed: 03/31/21 12:37> Status: Acute <JAMAR Guy - Last Filed: 03/31/21 12:37> Assessment and Plan: Lightly hydrate due to patient's history of congestive heart failure We will closely monitor 03/29/2021 Light hydration, NPO at this time d/t difficulty swallowing 03/30/2021 Encourage Pt to moisten oral cavity, continue IVF, Swallow study today <JAMAR Guy - Last Filed: 03/31/21 12:37> (6) Fall: Code(s):
--- NOTE | 2021-03-30 14:41 | PCOTNOTE ---
OT attempted to see patient this PM however nursing recommends therapy hold at this time secondary to patient just getting to bed from swallow study and being transferred to [place]. MS
[2021-03-30 16:00] VITALS: BP 146/82; PULSE 84; RESP 20; TEMP 36.6; O2SAT 96
[2021-03-30] MEDS: MORPHINE SULFATE (*CRX) 2 MG/ML INJ 1 MG IV PUSH (16:20)
--- NOTE | 2021-03-30 16:21 | PC.NURSE ---
at times hardf to understand. oral care given. upset about someone telling her she had to breathe into her nose and out her mouth. claims this makes her hurt all over and wants the pain med they gave her last night. it works on all her body aches.
--- NOTE | 2021-03-30 17:05 | PCPTNOTE ---
03/30/21 - PT was told to hold therapy this afternoon as patient has had a swallow study today and she is getting transferred to [facility] for surgery/more acute care. TIBURCIO
--- NOTE | 2021-03-30 19:00 | PC.NURSE ---
Completed bedside report and updated board. Patient was sleeping comfortably in bed, with no signs of pain or discomfort.
[2021-03-30] MEDS: MINERAL OIL/PETROLATUM OPHTH OINT 3.5 GM (EYE LUBRICANT) 1 APPLIC EACH EYE (21:48)
[2021-03-31] VITALS: BP 130/72; PULSE 99; RESP 18; TEMP 37.1; O2SAT 96
--- NOTE | 2021-03-31 02:10 | PC.NURSE ---
Completed patient rounding. Patient was anxious, asked for her home medication of xanax. Patient is NPO due to inability to swallow safely. Patient has 0.5 mg ativan, IV on SEP; gave it and helped patient relax while waiting for it to work. Patient stated she did not need anything else at this time.
[2021-03-31] MEDS: LORazepam INJ (*CRX) 2 MG/ML VIAL 0.5 MG IV PUSH ×2 (02:39→20:16)
[2021-03-31] MEDS: DEXTROSE 5%/0.45% SOD CHL 1,000 ML 50 ML IV CONT (04:50)
[2021-03-31 05:34] LABS: Hematocrit 31.7 % (35.0-42.0); Hemoglobin 10.3 g/dL (11.7-13.8); Mean Corpuscular HGB Conc 32.5 g/dL (32.0-36.0); Mean Corpuscular Hemoglobin 27.9 pg (27.0-31.0); Mean Corpuscular Volume 85.9 fL (78.0-102.0); Mean Platelet Volume 8.4 fl (9.2-11.8); Platelet Count Result 470 K/mm3 (150-420); Red Blood Count 3.69 M/mm3 (4.20-5.40); Red Cell Distribution Width 16.7 % (11.6-14.4)
[2021-03-31 05:50] LABS: Anion Gap 7 mmol/L (8-16); Blood Urea Nitrogen 6 mg/dL (7-18); Calcium 8.1 mg/dL (8.5-10.1); Carbon Dioxide 26 mmol/L (21-32); Chloride 105 mmol/L (98-108); Estimated CRCL calculation 49 ml/min; Estimated Glomerular Filt Rate > 60; Glucose 142 mg/dL (70-99); Osmolality Calculated 285 mOsm/kg (285-295); Potassium 3.4 mmol/L (3.5-5.1); Sodium 138 mmol/L (136-145)
[2021-03-31] MEDS: LEVOTHYROXINE SODIUM INJ 100 MCG/5 ML VIAL 37 MCG IV PUSH (06:12)
[2021-03-31 08:00] VITALS: BP 132/80; PULSE 102; RESP 30; TEMP 36.9
[2021-03-31] MEDS: KCL 20 MEQ/SW 100 ML 100 ML 50 MEQ IVPB (09:11)
[2021-03-31] MEDS: ENOXAPARIN 40 MG/0.4 ML SYRINGE SUB-Q (09:11)
--- NOTE | 2021-03-31 10:09 | PC.NURSE ---
[facility] transfer line called for update on patient. Waiting on bed placement on cardio-thoraci floor. Updated on patient vital signs and placement of NG tube. Reported possible bed placement this evening.
--- NOTE | 2021-03-31 11:30 | PC.NURSE ---
Pt bolus fed 100 ml Jevity 1.2 with 30 ml water flush via NG tube.
--- NOTE | 2021-03-31 12:38 | PM.IMPN ---
Progress Note: A&P Assessment and Plan (1) Pneumonia: Qualifiers: Laterality: unspecified laterality Lung location: unspecified part of lung Pneumonia type: due to unspecified organism Qualified Code(s): J18.9 - Pneumonia, unspecified organism Code(s): J18.9 - Pneumonia, unspecified organism Status: Acute Assessment and Plan: Chest x-ray indicate pneumonia Continue Rocephin and azithromycin day 1 Continue oxygen supplement if needed Blood culture pending WBCs 15.7 03/29/2021 WBC 14.4, continue with Rocephin and Azithromycin, Blood Cx pending 03/30/2021 WBC 13.8, continue with Ab, Blood Cx NGTD, lungs Diminished > on left posterior, has some post nasal drainage 03/31/2021 WBC 13, Continue Abx, Blood Cx NGTD, rales left base otherwise diminished, no increased work of breathing and not complaining of SOB (2) Dysphagia: Qualifiers: Dysphagia type: unspecified Qualified Code(s): R13.10 - Dysphagia, unspecified Code(s): R13.10 - Dysphagia, unspecified Status: Acute Assessment and Plan: Consult to speech therapy Patient n.p.o. 03/29/2021 Started Oral Care Q4H to moisten oral cavity, swallow evaluation tomorrow, continue NPO status, Obtaining CT Brain r/o mets as a couse for her dysphagia. 03/30/2021 With frequent oral care Pt is able to talk more clearly and is able to swallow small amounts, Pt stated she was able to swallow some phlegm, Pt to have Modified Barrium Swallow today around 1330 hours. 03/31/2021 Pt failed her swallow study, NG tube placed with bolus feedings and free water flushes scheduled. (3) Weakness: Code(s): R53.1 - Weakness Status: Acute Assessment and Plan: Consulted PT OT 03/29/2021 Pt will work with PT/OT for the following: Relieve pain, Improve movement or ability, Prevent disability or surgery, Rehab after an accident, injury, or surgery, Work on balance to prevent a slip or fall, Learn to use assistive devices like a walker or cane as needed 03/30/2021 Continue working with PT/OT, Pt states working with PT is too much 03/31/2021 continue to work with PT/OT, now with NG feeding expectation is increased energy to work better with PT/OT (4) Cancer: Code(s): C80.1 - Malignant (primary) neoplasm, unspecified Status: Acute Assessment and Plan: Follow-up with oncologist 03/29/2021 f/u with oncologist for nodule in LLL, obtaining CT brain to r/o mets (5) Dehydration: Code(s): E86.0 - Dehydration Status: Acute Assessment and Plan: Lightly hydrate due to patient's history of congestive heart failure We will closely monitor 03/29/2021 Light hydration, NPO at this time d/t difficulty swallowing 03/30/2021 Encourage Pt to moisten oral cavity, continue IVF, Swallow study today 03/31/2021 IVF will be stopped now that there is an NG tube in place for feedings with Jevity 1.2 and free water flushes. (6) Fall: Code(s): W19.XXXA - Unspecified fall, initial encounter Status: Acute Assessment and Plan: Injury to ribs and hip No fracture or dislocation noted Continue pain medication Consult to PT OT 03/29/2021 Pt working with PT/OT 03/30/2021 No reports of falling, RN reports Pt is weaker today compared to yesterday, Pt required only a 1 person assist. 03/31/2021 no changes at this time (7) Asthma: Code(s): J45.909 - Unspecified asthma, uncomplicated Status: Acute Assessment and Plan: Continue albuterol (8) Hyperlipidemia: Code(s): E78.5 - Hyperlipidemia, unspecified Status: Acute Assessment and Plan: Will resume atorvastatin 40 mg daily once patient is off n.p.o. status (9) Hypothyroidism, unspecified: Code(s): E03.9 - Hypothyroidism, unspecified Status: Acute Assessment and Plan: Continue Synthroid 37 mg daily Will resume home doses once patient is off n.p.o. status 03/29/2021 Slightly enlarged goiter, no tenderness, Pt states in th
[2021-03-31 16:25] VITALS: BP 151/74; PULSE 99; RESP 22; TEMP 36.6; O2SAT 98
--- NOTE | 2021-03-31 19:05 | PC.NURSE ---
Completed bedside change of shift report and updated board. Patient was alert and awake. She was concerned about getting ready to go to bed, and thought the speech therapist was coming back to do that. She wanted the head of her bed dropped slightly, her glasses on the white paper on the bedside table so that she could find them, and her phone placed on the table, again where she could find it. Patient's pillows and blankets were adjusted, and she stated she was comfortable and ready to rest.
--- NOTE | 2021-03-31 20:50 | PC.NURSE ---
Patient was transferred to [facility] by [facility]. Patient was medically stable, and report was given to BRIAN Duenas at [facility] at 1999. Patient's belongings were either given to her to take home, or sent with her to [facility].
[2021-03-31 21:00] VITALS: O2SAT 96
== END 2021-03-31 20:50 | disposition short-term general hospital (02) | DRG 178 ==
LOC: CHSED 11:50 → CHS2ND 12:31
PROVIDERS: Nurse Practitioner; Nurse Practitioner Family; Admitting Provider Emergency Medicine; Emergency Provider Emergency Medicine; PCP Internal Medicine; Visit Provider Emergency Medicine
DX: J69.0 Pneumonitis due to inhalation of food and vomit (principal); J90 Pleural effusion, not elsewhere classified; K57.30 Diverticulosis of large intestine without perforation or abscess without bleeding; R13.10 Dysphagia, unspecified; J45.909 Unspecified asthma, uncomplicated; I11.0 Hypertensive heart disease with heart failure; I50.9 Heart failure, unspecified; I25.10 Atherosclerotic heart disease of native coronary artery without angina pectoris; C50.919 Malignant neoplasm of unspecified site of unspecified female breast; E86.0 Dehydration; E78.5 Hyperlipidemia, unspecified; E03.9 Hypothyroidism, unspecified; E87.8 Other disorders of electrolyte and fluid balance, not elsewhere classified; E04.2 Nontoxic multinodular goiter; M19.90 Unspecified osteoarthritis, unspecified site; M81.0 Age-related osteoporosis without current pathological fracture; R53.1 Weakness; H40.9 Unspecified glaucoma; H26.9 Unspecified cataract; R91.8 Other nonspecific abnormal finding of lung field; F41.9 Anxiety disorder, unspecified; F32.9 Major depressive disorder, single episode, unspecified; Z91.81 History of falling; Z90.710 Acquired absence of both cervix and uterus; Z90.49 Acquired absence of other specified parts of digestive tract
CPT/HCPCS: 36415; 70450; 71101; 71260; 72080; 73502; 80048; 80053; 81001; 83605; 83735; 83880; 84443; 85025; 85027; 87040; 92526; 92610; 92611; 96361; 96374; 96375; 97110; 97161; 97165; 97530; 97535; 99285; A9270; C9113; J0456; J0696; J1650; J1885; J1940; J2060; J2270; J3480; J7030; J7040; Q9967

== ENCOUNTER 2021-04-14 10:00 | Outpatient (RCR) | payer MEDICARE, SELFPAY | END 2021-04-20 23:59 | disposition home or self-care (01) | LOC: CHSSENLIFE 10:00 | PROVIDERS: PCP Internal Medicine; Visit Provider Psychiatry & Neurology Psychiatry | DX: F33.2 Major depressive disorder, recurrent severe without psychotic features (principal) | CPT/HCPCS: 90792; 90837; 90853; 99213; G0463 ==

== ENCOUNTER 2021-04-15 08:58 | Outpatient (CLI) | payer MEDICARE, SELFPAY ==
--- NOTE | ~2021-04-15 | CT_ITS ---
EXAMINATION: CT diagnostic chest w con DATE: 04/15/2021 09:53 INDICATION: Empyema follow-up TECHNIQUE: Computed tomography (CT) of the chest was performed with 70 03/01/1950 intravenous contrast. The dose-length product was 133.58 mGy-cm. Automated exposure control and iterative reconstruction t echnique were employed. COMPARISON: Chest dated 03/29/2021 FINDINGS: There is atherosclerosis of the aorta and coronary arteries without evidence for aneurysm or dissecti on. Heart size is normal. Decreased size of bilateral pleural effusions which appear to be partially loculated. No thoracic lymphadenopathy. There is fatty infiltration of the liver. There are calcified granulomas of the liver and spleen. The re is a small subcentimeter hypodensity of the liver, most likely benign cysts or hemangioma. There a re cholecystectomy clips. There are changes of right mastectomy. There are coarse peripheral intersti tial changes in the right upper lobe, possibly radiation therapy change. There is a 4 mm left upper l obe nodule, image 31. This is unchanged. There are calcified nodules in the left lung, consistent wit h chronic granulomatous disease. There is a 5 mm left lower lobe nodule, image 95, not definitely see n on prior examination due to adjacent effusion. There is a 1.5 cm left lower lobe nodule, image 76, suspicious for malignancy. No focal lytic or blastic lesions are identified. No acute osseous abnorma lity. IMPRESSION: 1. Bilateral pulmonary nodules, largest in the left lower lobe measuring 1.5 cm. Primary bronchogenic carcinoma and metastatic disease are considered. Consider further evaluation with percutaneous biops y or PET/CT scan. 2: Decreased size of bilateral pleural effusions. 3: Status post right mastectomy with coarse interstitial changes in the lung periphery of the right u pper lobe, possibly radiation therapy change. Reviewed, dictated and finalized at location A. IMPRESSION: 1. Bilateral pulmonary nodules, largest in the left lower lobe measuring 1.5 cm . Primary bronchogenic carcinoma and metastatic disease are considered. Conside r further evaluation with percutaneous biopsy or PET/CT scan. 2: Decreased size of bilateral pleural effusions. 3: Status post right mastectomy with coarse interstitial changes in the lung pe riphery of the right upper lobe, possibly radiation therapy change.
== END 2021-04-15 08:59 | disposition home or self-care (01) ==
LOC: CHSIMG 08:59
PROVIDERS: PCP Internal Medicine; Visit Provider Internal Medicine
DX: J86.9 Pyothorax without fistula (principal)
CPT/HCPCS: 71260; Q9967

== ENCOUNTER 2021-07-14 10:00 | Outpatient (RCR) | payer MEDICARE, SELFPAY | END 2021-07-18 23:59 | disposition home or self-care (01) | LOC: CHSSENLIFE 10:00 | PROVIDERS: PCP Internal Medicine; Visit Provider Psychiatry & Neurology Psychiatry | DX: F33.2 Major depressive disorder, recurrent severe without psychotic features (principal) | CPT/HCPCS: 90837; 90853; 99213; 99214; G0463 ==

== ENCOUNTER 2021-08-11 12:16 | Outpatient (CLI) | payer MEDICARE, SELFPAY ==
[2021-08-11 13:38] LABS: Free T4 Free Thyroxine 1.41 ng/mL (0.78-2.19)
== END 2021-08-11 12:17 | disposition home or self-care (01) ==
LOC: ANHWCLAB 12:18
PROVIDERS: PCP Internal Medicine; Visit Provider Internal Medicine Endocrinology, Diabetes & Metabolism
DX: E04.9 Nontoxic goiter, unspecified (principal); E03.9 Hypothyroidism, unspecified
CPT/HCPCS: 36415; 84439; 84443

== ENCOUNTER 2021-10-18 10:00 | Outpatient (RCR) | payer MEDICARE, SELFPAY | END 2021-10-18 23:59 | disposition home or self-care (01) | LOC: CHSSENLIFE 10:00 | PROVIDERS: PCP Internal Medicine; Visit Provider Psychiatry & Neurology Psychiatry | DX: F33.2 Major depressive disorder, recurrent severe without psychotic features (principal) | CPT/HCPCS: 90834; 90853; 99213; 99214; G0463 ==

== ENCOUNTER 2022-01-19 10:00 | Outpatient (RCR) | payer MEDICARE, SELFPAY | END 2022-01-23 23:59 | disposition home or self-care (01) | LOC: CHSSENLIFE 10:00 | PROVIDERS: PCP Internal Medicine; Visit Provider Psychiatry & Neurology Psychiatry | DX: F33.2 Major depressive disorder, recurrent severe without psychotic features (principal) | CPT/HCPCS: 90853; 99213; 99214; G0463 ==

== ENCOUNTER 2022-01-26 10:00 | Outpatient (RCR) | payer MEDICARE, SELFPAY | END 2022-01-26 15:01 | disposition home or self-care (01) | LOC: CHSSENLIFE 10:00 | PROVIDERS: PCP Internal Medicine; Visit Provider Psychiatry & Neurology Psychiatry | DX: F33.2 Major depressive disorder, recurrent severe without psychotic features (principal) | CPT/HCPCS: 90853; 99213; G0463 ==

== ENCOUNTER 2022-08-15 14:47 | Outpatient (CLI) | payer MEDICARE, SELFPAY ==
[2022-08-15 17:19] LABS: Free T4 Free Thyroxine 1.39 ng/mL (0.78-2.19)
== END 2022-08-15 14:48 | disposition home or self-care (01) ==
LOC: ANHWCLAB 14:49
PROVIDERS: PCP Internal Medicine; Visit Provider Internal Medicine Endocrinology, Diabetes & Metabolism
DX: E03.9 Hypothyroidism, unspecified (principal); E04.9 Nontoxic goiter, unspecified
CPT/HCPCS: 36415; 84439; 84443

== ENCOUNTER 2022-08-24 08:28 | Outpatient (CLI) | payer MEDICARE, SELFPAY ==
--- NOTE | ~2022-08-24 | DEXA_ITS ---
Bone Density Report Name: KILEY BUTLER Age: 82 Sex: Female Ethnicity: White Date of : 1940 Indication: screening for osteoporosis; height loss; prior fracture; cancer; hysterectomy; Referring Provider: Naveen Reyes Study: Bone densitometry was performed. Exam Date: August 24, 2022 Accession number: [id number] Bone Density: Region BMD T-score Z-score Classification AP Spine(L1-L4) 0.771 -2.5 0.2 Osteoporosis Femoral Neck (Left) 0.592 -2.3 0.1 Osteopenia Total Hip (Left) 0.628 -2.6 -0.4 Osteoporosis Femoral Neck (Right) 0.560 -2.6 -0.2 Osteoporosis Total Hip (Right) 0.617 -2.7 -0.5 Osteoporosis Femoral Neck Mean 0.576 -2.5 -0.1 Osteoporosis Total Hip Mean 0.623 -2.6 -0.4 Osteoporosis World Health Organization criteria for BMD impression classify patients as: Normal (T-score at or above -1.0), Osteopenia (T-score between -1.0 and -2.5), or Osteoporosis (T-score at or below -2.5). 10-year Fracture Risk: FRAX not reported because: Premenopausal woman Some T-score for Spine Total or Hip Total or Femoral Neck at or below -2.5 Treated for osteoporosis Clinical Information Provided by Patient: Has had a low trauma fracture Is being treated for osteoporosis Has used the following medications: Reclast (i.e. zoledronate), Vitamin D Has the following medical conditions: Cancer, Hysterectomy Patient maximum height was 66 Menopause Age: 30 No regular weight bearing exercise Drinks caffeinated beverages Onset of menses at age 11 Premenopausal Number of children 2 Impression: The patient's bone mass is within expected range for age, gender and ethnicity. The patient has risk factors, including: previous fracture. Discussion: It is important to ask patients whether they are taking their medications and to encourage continued and appropriate compliance with their osteoporosis therapies to reduce fracture risk. It is also important to review their risk factors and encourage appropriate calcium and vitamin D intakes, exercise, fall prevention and other lifestyle measures. Follow-Up: Consider a repeat BMD and Vertebral Fracture Assessment (VFA) exam in 2 years or sooner if medically necessary, to reassess this patient's status. Reported by: Dr. Shawn Rocha on 08/24/2022 9:00:00 AM. Reviewed, dictated and finalized at location A. [facility]
== END 2022-08-24 08:29 | disposition home or self-care (01) ==
LOC: CHSIMG 08:30
PROVIDERS: PCP Internal Medicine; Visit Provider Internal Medicine
DX: Z78.0 Asymptomatic menopausal state (principal); M81.0 Age-related osteoporosis without current pathological fracture; M85.88 Other specified disorders of bone density and structure, other site
CPT/HCPCS: 77080

== ENCOUNTER 2022-09-15 13:13 | Outpatient (CLI) | payer MEDICARE, SELFPAY ==
[2022-09-15] MEDS: ZOLEDRONIC ACID 5 MG/100 ML 100 ML 400 MG IVPB (13:30)
[2022-09-15 13:34] VITALS: BMI 19.8
[2022-09-15 13:39] VITALS: BP 118/63; PULSE 72; RESP 14; TEMP 36.3; O2SAT 96
--- NOTE | 2022-09-15 13:44 | PC.NURSE ---
Patient here for yearly IV Reclast infusion. Education given. All concerns voiced. IV Reclast administered. SEE MAR. Tolerated well. Safe exit hospital.
== END 2022-09-15 13:14 | disposition home or self-care (01) ==
LOC: CHSTREATRM 13:14
PROVIDERS: PCP Internal Medicine; Visit Provider Internal Medicine
DX: M81.0 Age-related osteoporosis without current pathological fracture (principal)
CPT/HCPCS: 96365; 96374; J3489

== ENCOUNTER 2023-03-12 07:02 | Outpatient (CLI) | payer MEDICARE, SELFPAY ==
[2023-03-12 08:09] LABS: Alanine Aminotransferase 11 U/L (14-59); Albumin Level 2.9 g/dL (3.4-5.0); Alkaline Phosphatase 52 U/L (46-116); Anion Gap 6 mmol/L (8-16); Aspartate Amino Transferase 17 U/L (15-37); Bilirubin,Total 0.2 mg/dL (0.00-1.00); Blood Urea Nitrogen 17 mg/dL (7-18); Calcium 9.4 mg/dL (8.5-10.1); Carbon Dioxide 30 mmol/L (21-32); Chloride 108 mmol/L (98-108); Cholesterol 173 mg/dL (0-200); Estimated Glomerular Filt Rate > 60; Glucose 112 mg/dL (70-99); HDL Direct 58 mg/dL (40-60); LDL Cholesterol Calculated 92 mg/dL (<130); Osmolality Calculated 300 mOsm/kg (285-295); Potassium 5.4 mmol/L (3.5-5.1); Sodium 144 mmol/L (136-145); Total Protein 5.6 g/dL (6.4-8.2); Triglycerides 114 mg/dL (0-150)
== END 2023-03-12 07:03 | disposition home or self-care (01) ==
LOC: CHSLAB 07:05
PROVIDERS: PCP Internal Medicine; Visit Provider Internal Medicine
DX: I25.10 Atherosclerotic heart disease of native coronary artery without angina pectoris (principal); E78.5 Hyperlipidemia, unspecified
CPT/HCPCS: 36415; 80053; 80061

== ENCOUNTER 2023-04-20 07:49 | Outpatient (CLI) | payer MEDICARE, SELFPAY ==
--- NOTE | ~2023-04-20 | MM_ITS ---
EXAMINATION: MM screening tracey LT w malcom HISTORY: Screening TECHNIQUE: Craniocaudal and mediolateral oblique 3-D tomosynthesis images were obtained and synthetic 2-D images were generated. CAD analysis was submitted and interpreted. COMPARISON: Comparison to multiple prior studies sequentially, with oldest reviewed study dated 12/17. BREAST PARENCHYMAL COMPOSITION: Breast composed of scattered areas of fibroglandular density FINDINGS: There is a developing cluster of calcifications in the upper outer quadrant of the left mala ast near the nipple the right breast is surgically absent. IMPRESSION: 1. Developing cluster of left breast calcifications, upper outer quadrant near the nipple. 2. Magnification views are recommended. BI-RADS Category 0: Incomplete: Needs additional imaging evaluation. Reviewed, dictated and finalized at location A.
== END 2023-04-20 07:50 | disposition home or self-care (01) ==
PROVIDERS: PCP Internal Medicine; Visit Provider Nurse Practitioner Family
DX: Z12.31 Encounter for screening mammogram for malignant neoplasm of breast (principal); R92.8 Other abnormal and inconclusive findings on diagnostic imaging of breast
CPT/HCPCS: 77063; 77067

== ENCOUNTER 2023-04-27 08:41 | Outpatient (CLI) | payer MEDICARE, SELFPAY ==
--- NOTE | ~2023-04-27 | MMUS_ITS ---
EXAMINATION: MM diagnostic tracey LT w malcom, US breast LT limited HISTORY: Developing clustered left breast calcifications, upper outer quadrant near nipple TECHNIQUE: Additional ML 3-D tomosynthesis images of the left breast were performed and synthetic 2-D images were generated. Magnification views of left breast. CAD analysis was submitted and interprete d. High resolution subareolar left breast ultrasound was performed. COMPARISON: 04/20/2023, 12/17/2018 bilateral screening mammogram examinations FINDINGS: MAMMOGRAPHIC FINDINGS: There is a cluster of grouped microcalcifications in the anterior superolateral subareolar area. The calcifications are variable size but uniformly round and benign in appearance. Similar but not as num erous calcifications are noted on 12/17/2018. No malignant calcifications are identified. ULTRASOUND: No suspicious mass or shadowing is detected in the subareolar area. IMPRESSION: 1. Benign finding 2. Routine annual mammographic screening is recommended BI-RADS Category 2: Benign finding(s). Reviewed, dictated and finalized at location A. IMPRESSION: 1. Benign finding 2. Routine annual mammographic screening is recommended BI-RADS Category 2: Benign finding(s).
== END 2023-04-27 08:42 | disposition home or self-care (01) ==
LOC: CHSIMG 08:43
PROVIDERS: PCP Internal Medicine; Visit Provider Nurse Practitioner Family
DX: R92.8 Other abnormal and inconclusive findings on diagnostic imaging of breast (principal)
CPT/HCPCS: 76642; 77061; 77065; G0279

== ENCOUNTER 2023-07-22 11:11 | Emergency (ER) | payer MEDICARE, SELFPAY ==
--- NOTE | ~2023-07-22 | XR_ITS ---
XR chest 1V portable DATE: 07/22/2023 12:19 INDICATION: Fall. Pain between shoulder brainstem. History of breast cancer. TECHNIQUE: Portable AP chest on 07/18/2023 at 1155 hours COMPARISON: 04/15/2021 CT chest 08/21/2018 2 view chest FINDINGS: There is asymmetric right apical increased density, not present on 08/21/2018. There is also right mastectomy, a new finding since 08/21/2018. Mild scattered patchy right upper and lower lung infiltrate or scarring. Mild tenting of the right le af of the diaphragm. Bilateral hyperinflation, left greater than right. Mild cardiomegaly. Coronary artery stenting is suggested. There is aortic arch and descending thoraci c aortic calcification. No hilar or mediastinal enlargement. Surgical clips overlie the left supraclavicular area. Surgical clips overlie the right upper quadrant of the abdomen, consistent with cholecystectomy. IMPRESSION: Right apical infiltrate, scarring (possibly post-radiation) or less likely pulmonary or p leural mass lesion. Status right mastectomy Mild patchy scattered right lung infiltrate or scarring Reviewed, dictated and finalized at location A. LT SUGAR BOILER IMPRESSION: Right apical infiltrate, scarring (possibly post-radiation) or less likely pulmonary or pleural mass lesion. Status right mastectomy Mild patchy scattered right lung infiltrate or scarring
--- NOTE | ~2023-07-22 | CT_ITS ---
EXAMINATION: CT cervical spine wo con DATE: 07/22/2023 12:18 INDICATION: Fall down stairs. Generalized neck, upper and lower back pain. TECHNIQUE: Computed tomography (CT) of the cervical spine was performed without intravenous contrast. Automated exposure control and iterative reconstruction technique were employed. Exam dose: 126.51 mGy-cm total exam DLP. COMPARISON: None FINDINGS: Acute right subdural hematoma is demonstrated to better advantage on the noncontrast CT exa mination performed today. Mild levoscoliosis of the cervical spine. The cervical curvature is intact on the lateral view. C1 and C2 are normally aligned and the odontoid process is intact. There is degenerative change at th e articulation of the anterior arch of C1 and the odontoid process of C2. There is moderate degenerative disc disease and minimal retrolisthesis at C3-4 and C4-5 and mild dege nerative disc disease at C5-6. No fracture or dislocation or locked facet or prevertebral soft tissue swelling is detected. There is mild degenerative changes apophyseal joints and mild uncovertebral joint spurring at C4-5 and C5-6. IMPRESSION: Mild to moderate cervical spondylosis; no fracture or dislocation or locked facet Acute right frontal, parietal and temporal subdural hematoma Right apical probable scarring Reviewed, dictated and finalized at Location A. Reviewed, dictated and finalized at location A. R [employer]ODUCTS
--- NOTE | ~2023-07-22 | CT_ITS ---
EXAMINATION: CT thoracic lumbar wo con DATE: 07/22/2023 12:18 INDICATION: Fall down stairs today. Pain of neck and upper and lower back and tailbone TECHNIQUE: Computed tomography (CT) of the thoracic spine was performed without intravenous contrast. Automated exposure control and iterative reconstruction technique were employed. Exam dose: 736.58 mGy-cm total exam DLP. COMPARISON: 03/28/2021 thoracolumbar spine radiographs 04/24/2016 CT thorax FINDINGS: There is slight anterior wedging and loss of height of T3 and cupping of the superior verte bral endplate of T4 and some T4 vertebral body lucency, suggesting mild T3 and T4 compression fractur es, not present on 04/24/2016. There is mild to moderate loss of height and anterior wedging of T8 due to an apparent acute compress ion fracture, also not present on 04/24/2016. The lumbar vertebrae are normally aligned, without evidence of fracture or bone destruction, spondylo lysis or spondylolisthesis. There is mild degenerative spurring. Lumbar and lumbosacral interspaces a re relatively well preserved. Cardiomegaly, trace pericardial effusion. Coronary artery calcifications. Aortic valve calcification. Slight left and mild right pleural effusion. Right apical probable scarring again noted. Mild bilateral lower lobe infiltrate or atelectasis. Status post cholecystectomy. Diverticulosis of left and right colon. IMPRESSION: Probable recent T3, T4 and to a greater extent T8 compression fractures Reviewed, dictated and finalized at Location A. Reviewed, dictated and finalized at location A. ING MACHINE OPERATOR IMPRESSION: Probable recent T3, T4 and to a greater extent T8 compression frac cecy
--- NOTE | ~2023-07-22 | CT_ITS ---
EXAMINATION: CT brain wo con DATE: 07/22/2023 12:14 INDICATION: Patient fell and struck head. Patient is on Plavix. TECHNIQUE: Computed tomography (CT) of the head was performed without intravenous contrast. The mA wa s adjusted according to patient size. Iterative reconstruction technique was employed. Exam dose: 60 5.33 mGy-cm total exam DLP. COMPARISON: None FINDINGS: There is an acute right subdural hematoma measuring up to approximately 6 mm depth along th e right frontal, temporal and parietal region, without significant mass effect effect. The cortical s ulci are still largely intact and there is no significant midline shift. No intracranial mass lesion is detected. Chronic bilateral basal ganglia lacunar infarcts. There is prominent bilateral carotid siphon interna l carotid artery calcification as well as left vertebral artery and basilar artery calcification. The re is nonspecific diminished attenuation cerebral white matter, likely due to chronic small vessel is chemic changes. No skull fracture or bone destruction is detected. The mastoid air cells and paranasal sinuses are normally developed and aerated. IMPRESSION: Right acute subdural hematoma Dr. Bates telephoned the report on 07/18/2023 at 1219 hours to emergency room physician Dr. Shea. Reviewed, dictated and finalized at Location A. Reviewed, dictated and finalized at location A. S SAFETY ENGINEER IMPRESSION: Right acute subdural hematoma Dr. Bates telephoned the report on 07/18/2023 at 1219 hours to emergency room ph ysician Dr. Shea.
--- NOTE | ~2023-07-22 | XR_ITS ---
XR ankle RT min 3V DATE: 07/22/2023 12:20 INDICATION: Fall today. Lateral ankle pain. TECHNIQUE: 4 views COMPARISON: None FINDINGS: No fracture or dislocation of the ankle or disruption of the ankle mortise is detected. No periosteal reaction or bone destruction. IMPRESSION: No fracture or dislocation is detected Reviewed, dictated and finalized at location A. E WASHER
[2023-07-22 11:11] VITALS: BP 184/74; PULSE 64; RESP 16; TEMP 36.4; O2SAT 99
--- NOTE | 2023-07-22 11:22 | ECG_ITS ---
Measurements Intervals [place] Rate: 62 P: 70 GA: 181 QRS: -21 QRSD: 83 T: 36 QT: 418 QTc: 428 Interpretive Statements SINUS RHYTHM POSSIBLE LEFT ATRIAL ENLARGEMENT [-0.1mV P-WAVE IN V1/V2] BORDERLINE LEFT AXIS DEVIATION [QRS AXIS < -20] NONSPECIFIC T-WAVE ABNORMALITY NO PREVIOUS ECG AVAILABLE FOR COMPARISON Electronically Signed On 07-22-2023 17:16:26 WELLNESS GUIDE by Davina Walsh M.D.
--- NOTE | 2023-07-22 11:27 | ED.FALL ---
HPI - Fall General Chief Complaint: Fall Stated Complaint: Fall down stairs Time Seen by Provider: 07/22/23 11:16 Source: patient and EMS Mode of arrival: EMS Limitations: no limitations History of Present Illness HPI Narrative: Patient is an 82-year-old female who missed the middle step on a flight of stairs walking down to the basement with her laundry and fell by tumbling downward. She did not have any open wounds. She does have right ankle pain. And her cervical spine and thoracic spine and lumbar spine are all giving her pain at this time. She did hit her head. No loss of consciousness. She is on Plavix and aspirin. MD complaint: fall Onset (ago): minute(s) (30) Fall from: standing Fall witnessed: no Place fall occurred: home Loss of consciousness: none Prolonged down time: no Symptoms prior to fall: none Context: tripped/slipped Location of injury: head, neck, back and other ( Right ankle) Location of injury - extremities: Right: ankle Severity: moderate Severity scale (1-10): 4 Quality: sharp Associated symptoms (after fall): neck pain and shortness of breath ( patient has been having shortness of breath/ chest congestion for the past month) Related Data Home Medications Medication Instructions Recorded Confirmed aspirin 81 mg tablet,delayed 81 mg PO DAILY 06/30/19 07/22/23 release (Adult Low Dose Aspirin) atorvastatin 40 mg tablet 40 mg PO DAILY 06/30/19 07/22/23 clopidogrel 75 mg tablet 75 mg PO DAILY 06/30/19 07/22/23 pantoprazole 40 mg tablet,delayed 40 mg PO QAM 06/30/19 07/22/23 release metoprolol tartrate 25 mg tablet 25 mg PO BID 01/01/20 07/22/23 sertraline 50 mg tablet 75 mg PO DAILY 07/22/23 07/22/23 Allergies Allergy/AdvReac Type Severity Reaction Status Date / Time blue dye Allergy Unknown Anaphylaxis Verified 07/22/23 11:24 red dye Allergy Unknown Unknown Verified 07/22/23 11:24 Sulfa (Sulfonamide Allergy Unknown Unknown Verified 07/22/23 11:24 Antibiotics) Review of Systems Review of Systems: All systems reviewed & are unremarkable except as noted in HPI and below Constitutional: Constitutional: Reports no additional constitutional complaints Eyes: Eyes: Reports no additional eye complaints ENT: Reports system reviewed and no additional complaints, except as documented Cardiovascular: Cardiovascular: Reports no additional cardiovascular complaints Respiratory: Respiratory: Reports no additional respiratory complaints Gastrointestinal: Gastrointestinal: Reports no additional gastrointestinal complaints Genitourinary: Genitourinary: Reports no additional female genitourinary complaints Musculoskeletal: Musculoskeletal: Reports no additional musculoskeletal complaints Integumentary/Breasts: Skin/Breast: Reports system reviewed and no additional complaints, except as docu Neurologic: Reports system reviewed and no additional complaints, except as documented Psychiatric: Psychiatric: Reports no additional psychiatric complaints Endocrine: Endocrine: Reports no additional endocrine complaints Hematologic/Lymphatic: Hematologic/Lymphatic: Reports no additional hematologic/lymphatic complaints Allergic/Immunologic: Allergic/Immunologic: Reports no additional allergic/immunologic complaints PMFSH Past Medical History Medical History Anal fissure Anxiety Arthritis Asthma Back pain BMI 20.0-20.9, adult Body mass index [BMI] 20.0-20.9, adult (05/30/18) Breast cancer CAD (coronary artery disease) Cataracts, bilateral Chest pain Depression Dietary counseling and surveillance Family history of stent Gastroesophageal reflux disease with esophagitis Glaucoma Headache, migraine Heart disease Hiatal hernia Hyperlipidemia, unspecified Hypertension Hypothyroidism, unspecified Nontoxic multinodular goiter Osteoporosis Vision loss Surgical History Surgical History (Reviewed 07/22/23 @ 11:29 by Jack Hebert
[2023-07-22 11:29] VITALS: BP 184/74; PULSE 64; RESP 16; TEMP 36.4; O2SAT 99
[2023-07-22] MEDS: ORPHENADRINE CITRATE 30 MG/ML 2 ML VIAL 60 MG IM (12:19)
[2023-07-22 12:34] VITALS: BP 109/59; PULSE 78; RESP 16; O2SAT 95
[2023-07-22 12:55] LABS: Basophils Absolute Auto 0.05 K/mm3 (0.00-0.10); Basophils Percent Auto 0.4 % (0.0-1.0); Eosinophils Absolute Auto 0.15 K/mm3 (0.02-0.50); Eosinophils Percent Auto 1.2 % (1.0-6.0); Hematocrit 38.4 % (35.0-42.0); Hemoglobin 12.1 g/dL (11.7-13.8); Immature Granulocyte Absolute 0.19 K/mm3 (0.00-0.00); Immature Granulocyte Percent A 1.5 % (0.0-0.0); Lymphocytes Absolute Auto 1.24 K/mm3 (1.10-4.50); Lymphocytes Percent Auto 9.8 % (18.0-42.0); Mean Corpuscular HGB Conc 31.5 g/dL (32.0-36.0); Mean Corpuscular Hemoglobin 28.2 pg (27.0-31.0); Mean Corpuscular Volume 89.5 fL (78.0-102.0); Mean Platelet Volume 9.3 fl (9.2-11.8); Monocytes Absolute Auto 0.55 K/mm3 (0.10-0.90); Monocytes Percent Auto 4.3 % (2.0-11.0); Neutrophils Absolute Auto 10.5 K/mm3 (1.7-7.2); Neutrophils Percent Auto 82.8 % (50.0-70.0); Platelet Count Result 309 K/mm3 (150-420); Red Blood Count 4.29 M/mm3 (4.20-5.40); Red Cell Distribution Width 15.7 % (11.6-14.4); White Blood Count 12.7 K/mm3 (4.8-10.8)
[2023-07-22] MEDS: levoFLOXacin 500 MG TABLET PO (13:04)
[2023-07-22] MEDS: ACETAMINOPHEN 500 MG TABLET 1000 MG PO (13:04)
[2023-07-22 13:09] LABS: INR 0.9; Partial Thromboplastin Time 23.7 SEC (23.90-30.70); Prothrombin Time 9.9 Seconds (9.50-12.10)
[2023-07-22 13:13] VITALS: BP 102/59; PULSE 72; RESP 16; O2SAT 94
[2023-07-22 13:14] LABS: Alanine Aminotransferase 37 U/L (14-59); Albumin Level 2.6 g/dL (3.4-5.0); Alkaline Phosphatase 51 U/L (46-116); Anion Gap 4 mmol/L (8-16); Aspartate Amino Transferase 39 U/L (15-37); Bilirubin,Total 0.3 mg/dL (0.00-1.00); Blood Urea Nitrogen 17 mg/dL (7-18); Calcium 8.6 mg/dL (8.5-10.1); Carbon Dioxide 30 mmol/L (21-32); Chloride 102 mmol/L (98-108); Estimated CRCL calculation 38 ml/min; Estimated Glomerular Filt Rate > 60; Glucose 95 mg/dL (70-99); Osmolality Calculated 283 mOsm/kg (285-295); Potassium 3.3 mmol/L (3.5-5.1); Sodium 136 mmol/L (136-145); Total Protein 5.3 g/dL (6.4-8.2); Troponin I 23.1 ng/L (0.00-60.4)
[2023-07-22 13:18] VITALS: TEMP 36.7
[2023-07-22] MEDS: POTASSIUM CHLORIDE 20 MEQ ER TABLET PO (13:41)
[2023-07-22] MEDS: ONDANSETRON HCL ODT 4 MG TABLET PO (14:23)
== END 2023-07-22 14:23 | disposition short-term general hospital (02) ==
PROVIDERS: Emergency Provider Emergency Medicine; PCP Internal Medicine
DX: S06.5XAA Traumatic subdural hemorrhage with loss of consciousness status unknown, initial encounter (principal); S22.039A Unspecified fracture of third thoracic vertebra, initial encounter for closed fracture; S22.049A Unspecified fracture of fourth thoracic vertebra, initial encounter for closed fracture; S22.079A Unspecified fracture of T9-T10 vertebra, initial encounter for closed fracture; J18.9 Pneumonia, unspecified organism; S93.401A Sprain of unspecified ligament of right ankle, initial encounter; I25.10 Atherosclerotic heart disease of native coronary artery without angina pectoris; E78.5 Hyperlipidemia, unspecified; I10 Essential (primary) hypertension; Z79.01 Long term (current) use of anticoagulants; E03.9 Hypothyroidism, unspecified; Z79.82 Long term (current) use of aspirin; Z79.899 Other long term (current) drug therapy; Z85.3 Personal history of malignant neoplasm of breast; W10.9XXA Fall (on) (from) unspecified stairs and steps, initial encounter; Y92.009 Unspecified place in unspecified non-institutional (private) residence as the place of occurrence of the external cause
CPT/HCPCS: 36415; 70450; 71045; 72125; 72128; 72131; 73610; 80053; 84484; 85025; 85610; 85730; 93005; 96372; 99285; A9270; J2360

== ENCOUNTER 2023-07-31 11:18 | Emergency (ER) | payer MEDICARE, SELFPAY ==
[2023-07-31] VITALS (59 sets, daily range): BP systolic 92–176; BP diastolic 63–99; PULSE 67–87; RESP 16–20; TEMP 36.4; O2SAT 92–100
--- NOTE | ~2023-07-31 | XR_ITS ---
Portable chest x-ray Comparison: 07/22/2023 Clinical History: Confusion Findings: Calcified left hilar lymph nodes and calcified left midlung granuloma are unchanged. Suspe cted COPD. Possible minimal right pleural effusion. Cardiomediastinal silhouette is stable. Bones an d soft tissues are unremarkable. Impression: Possible minimal right pleural effusion. Suspected COPD with evidence of perirenal disc disease. Reviewed, dictated and finalized at location . ISH MEDICAL INTERPRETER Impression: Possible minimal right pleural effusion. Suspected COPD with evidence of perirenal disc disease.
--- NOTE | ~2023-07-31 | CT_ITS ---
CT head without contrast Indication: Subdural hematoma, headache COMPARISON: 1220 Technique: Serial scans were obtained through the brain without the administration of contrast. Dose reduction technique was used on this scan by utilizing automated exposure control and iterative recon struction technique. The dose-length product (DLP) was 681.00 mGy-cm. Findings: There is mixed acute and subacute right subdural hematoma, new hyperdense acute blood as co mpared to prior exam. A subdural hematoma is increased in size and extent as compared to prior exam, especially about the right skull skull base and right temporal/occipital lobes. There is significantl y increased mass effect as compared to prior exam, with compression of the right lateral ventricle, a nd leftward midline shift of 12 mm. The ventricles and subarachnoid spaces are dilated, consistent wi th underlying mild atrophy. The visualized paranasal sinuses and mastoid air cells are clear. Impression: Mixed acute and subacute right subdural hematoma, significantly increased in size and extent as [place] red to prior exam, with new hyperdense acute blood as compared to prior exam. Please see details abov e. Significant increased mass effect compared to prior exam, with compression of right lateral ventricle and leftward midline shift of 12 mm. Case discussed with Dr. Ridley at the time of this reading. Reviewed, dictated and finalized at location M. ALLER TECHNICIAN Impression: Mixed acute and subacute right subdural hematoma, significantly increased in si ze and extent as compared to prior exam, with new hyperdense acute blood as com pared to prior exam. Please see details above. Significant increased mass effect compared to prior exam, with compression of r ight lateral ventricle and leftward midline shift of 12 mm. Case discussed with Dr. Ridley at the time of this reading.
--- NOTE | 2023-07-31 11:22 | ED.GENADULT ---
HPI - General Adult General Chief complaint: Altered Mental Status Stated complaint: possible UTI Time Seen by Provider: 07/31/23 11:21 Source: patient, family and EMS Mode of arrival: EMS History of Present Illness HPI narrative: Patient 83-year-old white female brought in by EMS with complaint of confusion hypertension she has been confused since yesterday about 23 hours ago blood pressure was 168/82 she was normal sinus rhythm it is in the 70s with O2 sat 98% respirations 16 , blood sugar 123. EMS stated she had a bedside commode there her urine was cloudy and smelly. She has a history of frequent urinary tract infections. 23-1/2 hours ago she was started babbling and was not his ambulatory. Complains of right sided occipital headache. Past medical history breast cancer with left sided lymph ectomy, lymphoma in 2002 subdural [place] of last month. Related Data Home Medications Medication Instructions Recorded Confirmed atorvastatin 40 mg tablet 40 mg PO DAILY 06/30/19 07/31/23 pantoprazole 40 mg tablet,delayed 40 mg PO QAM 06/30/19 07/31/23 release metoprolol tartrate 25 mg tablet 25 mg PO BID 01/01/20 07/31/23 sertraline 50 mg tablet 75 mg PO DAILY 07/22/23 07/31/23 Allergies Allergy/AdvReac Type Severity Reaction Status Date / Time blue dye Allergy Unknown Anaphylaxis Verified 07/31/23 11:33 red dye Allergy Unknown Unknown Verified 07/31/23 11:33 Sulfa (Sulfonamide Allergy Unknown Unknown Verified 07/31/23 11:33 Antibiotics) [facility] Past Medical History Medical History Anal fissure Anxiety Arthritis Asthma Back pain BMI 20.0-20.9, adult Body mass index [BMI] 20.0-20.9, adult (05/30/18) Breast cancer CAD (coronary artery disease) Cataracts, bilateral Chest pain Depression Dietary counseling and surveillance Family history of stent Gastroesophageal reflux disease with esophagitis Glaucoma Headache, migraine Heart disease Hiatal hernia Hyperlipidemia, unspecified Hypertension Hypothyroidism, unspecified Nontoxic multinodular goiter Osteoporosis Vision loss Surgical History Surgical History H/O: hysterectomy History of bladder suspension procedure History of cholecystectomy Family History Family History Mother Family history of obesity Family history of migraine headaches Family history of arthritis Family history of coronary artery disease Family history of congestive heart failure Family history of heart disease in male family member before age 55 Hypertension Acute myocardial infarction Father Family history of glaucoma Family history of cataracts Cerebrovascular accident Family history of arthritis Family history of diabetes mellitus in first degree relative Family history of coronary artery disease Family history of lung disease Family history of heart disease in male family member before age 55 Acute myocardial infarction Sibling Family history of cataracts Family history of elevated blood lipids Family history of liver disease Family history of coronary artery disease Family history of lung disease Family history of heart disease in male family member before age 55 Family history of diabetes mellitus in first degree relative Family history of osteoarthritis Grandparent Family history of arthritis Family history of heart disease in male family member before age 55 Social History Social History Smoking status: Unknown if ever smoked Second hand tobacco smoke exposure: No Alcohol intake: never Substance use: never Substance use type: does not use Living arrangements: with family Additional living arrangements comments: (jazzy) Occupation/Education: retired Gender identity (if verbalized by the patient):
--- NOTE | 2023-07-31 11:31 | ECG_ITS ---
Measurements Intervals [place] Rate: 69 P: 96 ND: 161 QRS: -1 QRSD: 85 T: 74 QT: 406 QTc: 436 Interpretive Statements SINUS RHYTHM BORDERLINE R WAVE PROGRESSION, ANTERIOR LEADS T WAVE ABNORMALITY IN ANTERIOR LEADS- CONSIDER ISCHEMIA BASELINE ARTIFACT- I, II, III, AVR, AVL, AVF, V1 ABNORMAL ECG COMPARED TO ECG 07/22/2023 11:39:22 NO SIGNIFICANT CHANGES Electronically Signed On 07-31-2023 12:11:46 GEOPHYSICAL PROSPECTING SURVEYOR by Mirza Reyes D.O.
--- NOTE | 2023-07-31 11:50 | PC.NURSE ---
Patient down to Ct.
[2023-07-31 11:53] LABS: Hematocrit 30.2 % (35.0-42.0); Hemoglobin 9.6 g/dL (11.7-13.8); Mean Corpuscular HGB Conc 31.8 g/dL (32.0-36.0); Mean Corpuscular Hemoglobin 27.6 pg (27.0-31.0); Mean Corpuscular Volume 86.8 fL (78.0-102.0); Mean Platelet Volume 9.2 fl (9.2-11.8); Platelet Count Result 441 K/mm3 (150-420); Red Blood Count 3.48 M/mm3 (4.20-5.40); White Blood Count 9.3 K/mm3 (4.8-10.8)
--- NOTE | 2023-07-31 12:00 | PC.NURSE ---
Per family request, patient remains in her clothing from home, patient has back brace and they worry it will cause more confusion.
[2023-07-31 12:09] LABS: INR 0.9; Partial Thromboplastin Time 25.6 SEC (23.90-30.70); Prothrombin Time 10.1 Seconds (9.50-12.10)
[2023-07-31 12:23] LABS: Alanine Aminotransferase 25 U/L (14-59); Albumin Level 2.2 g/dL (3.4-5.0); Alkaline Phosphatase 100 U/L (46-116); Anion Gap 5 mmol/L (8-16); Aspartate Amino Transferase 24 U/L (15-37); Bilirubin,Total 0.3 mg/dL (0.00-1.00); Blood Urea Nitrogen 9 mg/dL (7-18); Carbon Dioxide 28 mmol/L (21-32); Chloride 101 mmol/L (98-108); Estimated Glomerular Filt Rate > 60; Glucose 114 mg/dL (70-99); Magnesium 1.9 mg/dL (1.8-2.4); Osmolality Calculated 277 mOsm/kg (285-295); Potassium 3.7 mmol/L (3.5-5.1); Sodium 134 mmol/L (136-145); Total Protein 5.4 g/dL (6.4-8.2); Troponin I 52.1 ng/L (0.00-60.4)
[2023-07-31 12:24] LABS: Thyroid Stimulating Hormone 4.84 uIU/mL (0.36-3.74)
[2023-07-31 12:50] LABS: Appearance Urine Clear (Clear); Bilirubin Urine Negative (Negative); Blood Urine 1+ (Negative); Color Urine Light Yellow (Yellow); Glucose Urine UA Negative (Negative); Ketones Urine Negative (Negative); Leukocyte Esterase Ur Negative (Negative); Nitrate Urine Negative (Negative); Protein Urine Negative (Negative); Specific Grav Ur <= 1.005 (1.010-1.020); Urobilinogen Urine 0.2 mg/dL (0.2-1.0)
[2023-07-31] MEDS: levETIRAcetam 1000MG/NACL100ML 1,000 MG/100 ML BAG 400 MG IVPB (12:59)
[2023-07-31 13:01] LABS: Add Urine Microscopic? YES; Bacteria Urine Trace /hpf; RBC Urine 0-2 /hpf (0-2); WBC Urine None seen /hpf (0-3)
[2023-07-31] MEDS: SODIUM CHLORIDE 3% 250 ML 500 ML IV CONT (13:20)
[2023-07-31 18:21] LABS: Anion Gap 6 mmol/L (8-16); Blood Urea Nitrogen 10 mg/dL (7-18); Calcium 8.8 mg/dL (8.5-10.1); Carbon Dioxide 28 mmol/L (21-32); Chloride 106 mmol/L (98-108); Estimated Glomerular Filt Rate > 60; Glucose 105 mg/dL (70-99); Osmolality Calculated 289 mOsm/kg (285-295); Potassium 3.4 mmol/L (3.5-5.1); Sodium 140 mmol/L (136-145)
[2023-07-31] MEDS: SODIUM CHLORIDE 0.9% IV 500 ML 100 ML IV CONT (18:22)
--- NOTE | 2023-07-31 19:38 | PC.NURSE ---
Report received, pt sleeping at this time. Family at bedside. Rr even and nonlabored. VSS. Awaiting bed placement at [place].
--- NOTE | 2023-07-31 20:25 | PC.NURSE ---
Pt given her HS eye drops for glaucoma per pts. daughter. ERP Dr Ridley okayed daughter to use home eye drop meds.
[2023-07-31] MEDS: ACETAMINOPHEN 325 MG TABLET 650 MG PO (20:35)
--- NOTE | 2023-07-31 20:44 | PC.NURSE ---
Pt repositioned in bed c pillows for comfort. Pt is alert and answers questions appropriately. Pt took her Tylenol c sips of water s difficulty. Continuing to monitor and await bed at [place].
--- NOTE | 2023-07-31 22:30 | PC.NURSE ---
Pt sleeping, continuing to monitor. RR even and nonlabored, call marshall at side.
[2023-08-01] VITALS (58 sets, daily range): BP systolic 135–174; BP diastolic 47–105; PULSE 73–90; RESP 17–20; TEMP 36.6; O2SAT 93–100
--- NOTE | 2023-08-01 00:07 | PC.NURSE ---
Pt sleeping and turned to Lt side c pillows for comfort. RR even and nonlabored, continuing to monitor and await for bed at [facility] in AM. VSS
--- NOTE | 2023-08-01 00:39 | PC.NURSE ---
Pt turned and repositioned and changed of wet urine that leaked thru her pad and PJ pants. Pt placed on bed lópez and she urinated s difficulty. Depend applied, pillows and warm blankets given. VSS, call marshall at pt. side.
--- NOTE | 2023-08-01 02:35 | PC.NURSE ---
Pt awake and talking in room, some confusion noted at this time. She states she wants coffee and to talk to her and that he has a pot of coffee on in the kitchen. Pt reoriented to surroundings and given sips of water to drink. Pt given warm cloth to her eyes for comfort and warm blanket. Call marshall at side.
--- NOTE | 2023-08-01 04:26 | PC.NURSE ---
Pt assisted to use bed lópez and urinated. Pt turned self and repositioned to side for comfort. Call marshall at side. Continuing to monitor.
--- NOTE | 2023-08-01 05:30 | PC.NURSE ---
Pt sleeping, RR even and nonlabored.
--- NOTE | 2023-08-01 07:10 | PC.NURSE ---
Report taken from Renetta TORRES, Patient is asleep at this time. will continue to monitor.
[2023-08-01] MEDS: METOPROLOL TARTRATE 25 MG TABLET PO (08:02)
[2023-08-01] MEDS: LEVOTHYROXINE SODIUM 75 MCG TABLET PO (08:06)
--- NOTE | 2023-08-01 08:19 | PC.NURSE ---
patient reposition in bed, using bedpan at this time. was able to take pills without any difficulty.
[2023-08-01] MEDS: ACETAMINOPHEN 325 MG TABLET 650 MG PO (10:01)
[2023-08-01] MEDS: LABETALOL HCL INJ 100 MG/20 ML VIAL 10 MG IV PUSH (10:26)
--- NOTE | 2023-08-01 12:00 | PC.NURSE ---
Patient resting on stretcher, family at bedside, RN is able to wake patient with verbal stimuli. States her headache is better.
--- NOTE | 2023-08-02 12:58 | PC.NURSE ---
final urine culture report reviewed. no growth. no change in plan of care.
--- NOTE | 2023-08-07 13:17 | PC.NURSE ---
FINAL BLOOD CULTURE RESULTS X2: NO GROWTH AFTER 5 DAYS. NO ACTION NEEDED.
== END 2023-08-01 13:37 | disposition short-term general hospital (02) ==
PROVIDERS: Emergency Medicine; Emergency Provider Internal Medicine Critical Care Medicine; PCP Internal Medicine
DX: S06.5XAA Traumatic subdural hemorrhage with loss of consciousness status unknown, initial encounter (principal); I10 Essential (primary) hypertension; I25.10 Atherosclerotic heart disease of native coronary artery without angina pectoris; E78.5 Hyperlipidemia, unspecified; E03.9 Hypothyroidism, unspecified; Z79.899 Other long term (current) drug therapy; X58.XXXA Exposure to other specified factors, initial encounter
CPT/HCPCS: 36415; 70450; 71045; 80048; 80053; 81001; 83605; 83735; 84443; 84484; 85027; 85610; 85730; 87040; 87086; 93005; A9270; J1953; J7040; J7131